=== PATIENT | female | born 1940 | race Caucasian/White ===

== ENCOUNTER 2017-06-10 09:22 | Day surgery (SDC) | payer MEDICARE, OTHER ==
[~2017-06-10] VITALS: Ht 167.6 cm; Wt 64.0 kg
[~2017-06-10 09:22] MED LIST: CYCL-36 PO; LORT5TAB PO; MELO15TA2 PO; NADO1TAB16 PO
[2017-06-10] MEDS ORDERED: IOHEXOL 350 MG/ML 50 ML BTL (for Cath Lab) OTHER ONE (09:23)
[2017-06-10] MEDS ORDERED: NS 1000P @30 MLS/HR (KVO) IV SCH (09:45)
[2017-06-10] MEDS ORDERED: CAL-TAB4 PO (10:06)
[2017-06-10] MEDS ORDERED: ATEN25TA PO (10:06)
[2017-06-10] MEDS ORDERED: FIBE625T10 PO (10:06)
[2017-06-10] MEDS ORDERED: ATOR10TA15 PO (10:06)
[2017-06-10] MEDS ORDERED: LACTCAP8 PO (10:06)
[2017-06-10] MEDS ORDERED: COLA100C5 PO (10:06)
[2017-06-10] MEDS ORDERED: ASPI81TA23 PO (10:06)
[2017-06-10] MEDS ORDERED: LOSA100T PO (10:06)
[2017-06-10] MEDS ORDERED: NORC5TAB PO (10:06)
[2017-06-10 10:09] VITALS: BP 151/84; PULSE 61; RESP 18; TEMP 97.9; O2SAT 98
[2017-06-10 10:13] LABS: BASOPHIL # 0.1 TH/MM3 (0-0.2); BASOPHIL % 0.8 % (0.0-2.0); EOSINOPHIL # 0.2 TH/MM3 (0-0.4); EOSINOPHIL % 3.5 % (0.0-4.0); HEMATOCRIT 43.5 % (35.0-46.0); HEMOGLOBIN 14.6 GM/DL (11.6-15.3); LYMPH % 20.4 % (9.0-44.0); LYMPHOCYTE # 1.2 TH/MM3 (1.0-4.8); MEAN CORPUSCULAR HEMOGLOBIN 30.5 PG (27.0-34.0); MEAN CORPUSCULAR HGB CONC 33.5 % (32.0-36.0); MEAN PLATELET VOLUME 8.8 FL (7.0-11.0); MONO % 8.8 % (0.0-8.0); MONOCYTE # 0.5 TH/MM3 (0-0.9); NEUT % 66.5 % (16.0-70.0); PLATELET COUNT 194 TH/MM3 (150-450); RED BLOOD COUNT 4.78 MIL/MM3 (4.00-5.30); RED CELL DISTRIBUTION WIDTH 14.3 % (11.6-17.2)
[2017-06-10 10:20] LABS: PROTHROMBIN TIME - PATIENT 10.5 SEC (9.8-11.6)
[2017-06-10 10:28] LABS: BICARBONATE 29.2 MEQ/L (21.0-32.0); CALCIUM 8.9 MG/DL (8.5-10.1); CREATININE 0.69 MG/DL (0.50-1.00)
[2017-06-10] MEDS ORDERED: HEPARIN-NS/PF FLUSH BAG 2,000 ML IV FLUSH ONE (11:05)
[2017-06-10] MEDS ORDERED: MIDAZOLAM HCL 2 MG/2 ML VIAL ONE (11:05)
[2017-06-10] MEDS ORDERED: VERAPAMIL HCL 5 MG/2 ML VIAL ONE (11:06)
[2017-06-10] MEDS ORDERED: HEPARIN SODIUM - IV 10,000 UNITS/10 ML VIAL ONE (11:06)
[2017-06-10] MEDS ORDERED: NITROGLYCERIN INJ 5 ML ONE (11:06)
--- NOTE | 2017-06-10 12:37 | CATHPROC ---
Inspirato HIS Report Study Information Study Number Admission Scheduled Start Study Start [id number] Jun 10 2017 9:22AM 06/10/2017 Jun 10 2017 10:52AM Study Type [place] Service Left and Right Heart Cath Cardiac Catheterization Admit Source Facility Department Other [facility] - [employer] Technician Physician and Clinical Staff Initial Erik Hay Abatement Worker Rose Mary Haywood,JESUS Abatement Worker Kevin Mcdonald,RN Other Ching Gasca,RT(R) Recorder Clari Vela RCIS TECH2 Recorder Jim LEE, Daxa MoncadaRT(R) Procedures Performed Procedure Location (Site) Vessel Name Coronary Angiograms LCA Left Coronary Coronary Angiograms RCA Right Coronary Equipment Time [employer] Art Teacher Description Size Mfg Part Number Used/Scraped CATHETER, FR5 SWAN MAYTE 10:55 Second Decimal JACKSON FR 5 [id number] *[id number] Used MONITOR TRANSDUCER, TRUWAVE [id number] 10:54 DONG JACKSON * Used W/STOCKCOCK *[id number] *[id number] 10:54 [employer] PACK, CCL CUSTOM * Used *[id number] 10:54 [employer] SUPPORT, ARTERIAL ADULT [id number] *[id number] Used [id number] 12:09 MEDTRONIC JL 3.5 DXTERITY CATHETER FR 5 Used *[id number] BAND, RADIAL COMPRESSION TR [id number] 12:16 [employer] MEDICAL 24CM Used SHORT 24 *[id number] BAND, RADIAL COMPRESSION TR [id number] 12:17 [employer] MEDICAL 24CM Used SHORT 24 *[id number] 10:54 3D Forms WIRE, EXCHANGE 260CM 3MMJ 260CM Used *[id number] PROBE COVER, STERILE [id number] 11:42 XAircraft * Used ULTRASOUND W/ GEL *[id number] 10:55 NAMIC MANIFOLD, 2 PORT * Used *[id number] 10:54 NAMIC MANIFOLD, 4 PORT * Used *[id number] 10:54 NYCOMED OMNIPAQUE, 350 MG, 150ML 150ML [id number] Used [id number] 10:54 EU[employer] MEDICAL BLANKET,WARM AIR CCL * Used *[id number] SHEATH, FR6 TRANSRADIAL [id number] 10:54 TER[employer] MEDICAL FR 6 Used SLENDER 10CM *[id number] SHEATH, FR6 TRANSRADIAL RM*[id number] 10:54 [facility] Used SLENDER 10CM *[id number] History: Current Medications Medication Dosage/Unit Route Frequency Last Date/Time Taken ASA Beta Kay VITAMIN D Statins (any) COZAAR History: Allergies Allergy Reaction disopyramide SEVERE HEADACHE clavulanic acid DIARRHEA ciprofloxacin amoxicillin DIARRHEA History: Risk Factors Family History of Hypertension Dyslipidemia Previous IN Previous Heart Failure Premature CAD Yes Yes No No No Prior Valve Prior PCI Prior CABG Surgery No No No Cerebrovascular Peripheral Artery Chronic Lung On Dialysis Diabetes Disease Disease Disease No No No No No History: Stress Tests Stress or Imaging Studies Performed No History: Other Current Smoker Method Quit Packs a Day Years Used Pack Years No Cigarettes 44 Years Ago 1 15 15 Labs Hgb (g/dl) Hct (%) WBC (l/cumm) Platelets (thousands) 11.60-17.00 35.00-51.00 4.00-11.00 150.00-450.00 14.6 43.5 6 194 Glucose (mg/dl) BUN (mg/dl) Creatinine (mg/dl) BUN:Creatinine (1:x) 74.00-106.00 7.00-18.00 0.50-1.30 10.00-20.00 85 12 0.6 20 Na (meq/l) K (meq/l) Cl (meq/l) CO2 (mmol/L) Ca (mg/dl) 136.00-145.00 3.50-5.10 98.00-107.00 21.00-32.00 8.50-10.10 142 3.7 106 29.2 8.9 PT (sec) PTT (sec) INR (PTT:PT) 9.80-11.60 24.30-30.10 0.90-1.10 10.5 24.9 1 CPK-MB (ng/ML) 0.50-3.60 Not Drawn Medication Medication Total Dose (Bolus/Oral) Medication Total Dosage/Unit 1% XYLOCAINE 40 mL FENTANYL 50 mcg RADIAL COCKTAIL 5 mL (Bolus) Medications (Bolus/Oral) Medication Time Given Dosage/Unit Administered By Reason FENTANYL 06/10/2017 11:38:07 AM 50 mcg Kevin Mcdonald 50 mcg FENTANYL given in lab by Kevin Mcdonald RN in Left Antecubital via Peripheral IV. Ordered by Erik Lopez 1% XYLOCAINE 06/10/2017 11:38:30 AM 20 mL Erik Ceron 20 mL 1% XYLOCAINE given in lab by Erik Ceron in Right Radial via Subcutaneous. Ordered by Erik Owens RADIAL COCKTAIL 06/10/2017 11:40:52 AM 5 mL (Bolus) Erik Ceron 5 mL (Bolus) RADIAL COCKTAIL given in lab by Erik Ceron in Right Radial via Radial. Using [S olution Name]. Ordered by Erik Ceron Reason: Ntg 200mcg Verapamil 2.5mg Heparin 2600U. 1% XYLOCAINE 06/10/2017 11:43:20 AM 20 mL Erik Ceron 20 mL 1% XYLOCAINE given in lab by Erik Ceron via Subcutaneous to right brachial. Ordered by Erik Ceron Medication (Drip) Medication Time Given Dosage/Unit Concentration/Unit Diluent (ml) Solution IV Solutions 06/10/2017 11:13:58 AM 0 mL (IV) 500 NaCl .9 Patient arrived on IV Solutions in Left Antecubital via Peripheral IV. Pump/Drip Flow = 20 ml/hr usin g NaCl .9. Final Case Assessment Cardiovascular HR Rhythm NIBP Chest Pain 67 sr 159/77 0 Circulatory - Right Pulses Dorsalis Pedis Femoral Radial 3 2 2 Scale (0,1,2,3,4,d) Circulatory - Left Pulses Dorsalis Pedis Femoral Radial 3 2 Scale (0,1,2,3,4,d) Chronological Log Time Study Chronological Log 11:02:59 Patient arrived via Bed. 11:03:00 Patient Name, D.O.B, / Armband Verified By R.N. 11:03:02 Consent signed by the physician and the patient and verified by the Oil Well Fishing Tool Technician staff. 11:03:02 Pre-op and post- op instructions given; patient acknowledges understanding of instruction s. 11:03:04 Verbal Stimulation=2 Physical Stimulation=2 Airway=2 Respiration=2 TOTAL=8. (0=absent, 1= limited, 2=present) 11:03:05 Presedation assessment performed by Oil [employer] Fishing Tool Technician RN. 11:03:07 Allens test performed on the left radial and ulnar artery. 11:03:08 Patient has been NPO for More than 6Hrs. 11:03:09 Skin Breakdown-none 11:03:11 Kennedy Prominences Protected 11:13:21 A # 20 IV was noted in the Antecubital (left). Grade = patent 11:13:58 Patient arrived on IV Solutions in Left Antecubital via Peripheral IV. Pump/Drip Flow = 20 ml/hr using NaCl .9. 11:14:17 History and physical on the chart or being dictated. Vitals capture started with the following parameters, Patient=Adult, Interval=5 min, Initial Pr ucdrer=598 mmHg, 11:14:28 Deflation Rate=5 mmHg, Cuff placed on Unknown 11:14:41 Reference ECG taken 11:15:33 HR=70 bpm, HPSQ=208/79 mmhg, SpO2=98.0 %, Resp=14 B/min, Pain=0, [place]=10, Matthews=2 11:18:10 Bilateral groins and right radial and brachial prepped with 2% chlorhexidine, and draped af ter a 3 minute waiting time. 11:20:51 HR=75 bpm, GYMT=454/88 mmhg, SpO2=97.0 %, Resp=20 B/min 11:25:15 HR=73 bpm, HQPS=320/79 mmhg, SpO2=98.0 %, Resp=17 B/min 11:27:35 MD paged 11:29:42 MD responded 11:30:14 HR=74 bpm, DXZE=434/83 mmhg, SpO2=97.0 %, Resp=9 B/min 11:31:53 MD arrived. 11:35:09 HR=74 bpm, KFTC=380/86 mmhg, SpO2=95.0 %, Resp=14 B/min Time Out. Correct patient, correct procedure, correct physician, power injector loaded, or not loaded with contrast with 11:37:29 surgical team present. Time Out Concurred by MD and individual staff in procedure. 11:37:43 Pressure channel 1 zeroed. 50 mcg FENTANYL given in lab by Kevin Mcdonald, RN in Left Antecubital via Peripheral IV. Ordered by Erik Ceron 11:38:07 G. 11:38:27 Case Start 20 mL 1% XYLOCAINE given in lab by Erik Ceron in Right Radial via Subcutaneous. Ordere d by Osmany 11:38:30 Erik Medina 11:39:39 Access site was Radial Artery. right A SHEATH, FR6 TRANSRADIAL SLENDER 10CM FR 6 was advanced into the Radial (right) using the Perc utaneous 11:39:57 technique. 11:40:12 HR=74 bpm, NLGP=182/85 mmhg, SpO2=98.0 %, Resp=14 B/min 5 mL (Bolus) RADIAL COCKTAIL given in lab by Erik Ceron in Right Radial via Radial. Us ing [Solution Name]. 11:40:52 Ordered by Erik Ceron. Reason: Ntg 200mcg Verapamil 2.5mg Heparin 2600U. 20 mL 1% XYLOCAINE given in lab by Erik Ceron via Subcutaneous to right brachial. Orde red by Osmany, 11:43:20 Erik Monte. 11:45:15 HR=72 bpm, SBLS=977/82 mmhg, SpO2=94.0 %, Resp=10 B/min, Pain=0, Matthews=2 11:50:10 HR=68 bpm, MJSX=232/80 mmhg, SpO2=96.0 %, Resp=20 B/min, Pain=0, Matthews=2 11:50:38 Access site was Right Brachial Vein. A SHEATH, FR6 TRANSRADIAL SLENDER 10CM FR 6 was advanced into the Radial (right) using the Earnest fievelyn Moore 11:51:20 technique. 11:52:40 A CATHETER, FR5 SWAN MAYTE MONITOR FR 5 was inserted via Brach. Vein (right) Recorded Pressure: PCW, HR=69, Condition=Condition 1 11:54:53 (Pulmonary Capillary Wedge) PCW 19/17/15 11:55:56 HR=67 bpm, BJLU=679/84 mmhg, SpO2=95.0 %, Resp=12 B/min, Pain=0, Matthews=2 11:57:45 Saturation: Site=PA (Pulmonary Artery) , O2=77.9 %, Hgb=14.6 gm/dl, Condition=Condition 1. Used in calculation. 11:59:01 Saturation: Site=Ao (Aorta) , O2=93.6 %, Hgb=14.6 gm/dl, Condition=Condition 1. Used in riddhi culation. Recorded Pressure: MPA, HR=67, Condition=Condition 1 11:59:51 (Main Pulmonary Artery) MPA 35/17/24 12:00:14 HR=67 bpm, RZRR=647/74 mmhg, SpO2=94.0 %, Resp=10 B/min, Pain=0, Matthews=2 Recorded Pressure: RV, HR=66, Condition=Condition 1 12:01:04 (Right Ventricle) RV 39/5/8 12:02:42 Saturation: Site=RV (Right Ventricle) , O2=80.4 %, Hgb=14.6 gm/dl, Condition=Condition 1. U sed in calculation. 12:03:18 Saturation: Site=RA (Right Atrium) , O2=80.9 %, Hgb=14.6 gm/dl, Condition=Condition 1. Used in calculation. Recorded Pressure: RA, HR=69, Condition=Condition 1 12:03:59 (Right Atrium) RA 8/6/4 12:04:22 Gary Mayte Catheter Removed 12:04:48 A JR 4.0 INFINITI CATHETER FR 5 was advanced over a wire. 12:05:17 HR=66 bpm, LMGV=954/83 mmhg, SpO2=92.0 %, Resp=10 B/min, Pain=0, Matthews=2 Recorded Pressure: Ao, HR=68, Condition=Condition 1 12:07:16 (Aorta) Ao 175/73/114 12:07:51 The RCA was injected and visualized at various angles. OMNIPAQUE, 350 MG, 150ML 150ML used . After removing the current catheter a JL 3.5 DXTERITY CATHETER FR 5 was advanced over a WIRE, E XCHANGE 260CM 12:08:12 3MMJ 260CM. 12:10:16 HR=67 bpm, MYPH=365/83 mmhg, SpO2=95.0 %, Resp=13 B/min, Pain=0, Matthews=2 12:11:10 The LCA was injected and visualized at various angles. OMNIPAQUE, 350 MG, 150ML 150ML used . 12:13:33 Catheter was removed 12:13:46 Case End 12:14:31 Activated Clotting Time Drawn 12:15:15 HR=71 bpm, RQBZ=598/77 mmhg, SpO2=93.0 %, Resp=27 B/min, Pain=0, Matthews=2 Radial Compression Device Used. 10 mLs of air placed in BAND, RADIAL COMPRESSION TR SHORT 24 24 CM. Affected 12:16:09 hand 94 % O2 saturation. 12:19:46 Case End 12:20:14 HR=67 bpm, MTWV=210/71 mmhg, SpO2=97.0 %, Resp=11 B/min 12:20:34 ACT (Normal Range 90-180) = 198 12:25:13 HR=67 bpm, KELY=059/77 mmhg, SpO2=96 %, Resp=12 B/min 12:26:18 Vitals capture stopped. 12:27:49 Sheath(s) left in place, will be removed in Holding Area 12:27:52 Sterile dressing applied to site 12:27:53 No case complications noted. 12:27:54 Cine recording checked. 12:27:55 Bedside Report will be given. Assessment: Final Case, HR=67 BPM, Rhythm=sr, XCID=595/77 mmhg, Chest Pain=0 12:28:00 Right Pulses: Chris Ped=3, Femoral=2, Radial=2 Left Pulses: Chris Ped=3, Femoral=2 12:30:50 Patient moved to stretcher 12:33:19 Patient transported to DOCU. End Study - Contrast Media Used In Study Contrast Total Opened (mL) Total Used (mL) Total Wasted (mL) Omnipaque 40 40 0 End Study - Maximum Contrast Load Max Contrast Load (mL) 533.3 End Study - Radiation Exposure Fluoro Time (minutes) 2.5 End Study - Sheaths Sheaths Pulled By Sheath Hold Time (min) Erik Ceron End Study - Patient Disposition Complications Transferred To Interventional Outcome No Telemetry Bed No attempt made
[2017-06-10] MEDS ORDERED: MISC INFORMATION XX ONE (12:45)
--- NOTE | 2017-06-10 13:03 | MA ---
cc: Erik Ceron DO DATE: 06/10/2017 PROCEDURE PERFORMED: Coronary angiogram, right heart catheterization. PREPROCEDURE DIAGNOSIS: Severe aortic stenosis by echocardiogram, for possible aortic valve replacement/transcatheter aortic valve replacement. POSTPROCEDURE DIAGNOSIS: Mild coronary artery disease, severe aortic stenosis. MEDICATIONS: Fentanyl 50 mcg, nitroglycerin 200 mcg, verapamil 2.5 mg, heparin 2600 units. CONTRAST USED: 40 mL FLUOROSCOPY: 2.5 minutes. MODERATE SEDATION: Zero minutes. ESTIMATED BLOOD LOSS: 10 mL PROCEDURAL SUMMARY: Vale Lilly is a pleasant 77-year-old female who sees my partner, Dr. Pak, in the office and was found to have and was found to have severe aortic stenosis by echo. She was recommended cardiac catheterization before evaluation by CT surgery. Risks, benefits and alternatives were discussed with her, and she consented to such. She was brought to the lab and prepped in the usual sterile fashion. Right radial artery was accessed using modified Seldinger technique and placement of a 5/6 Hungarian slender sheath. This was easily aspirated and flushed. Right brachial vein was accessed using a modified Seldinger technique and ultrasound guidance with placement of a 5/6 Hungarian slender sheath. This was easily aspirated and flushed. A Clearwater-Walter catheter was advanced to a wedge position and oxygen saturations as well as pressures were recorded on pullback. Clearwater-Walter catheter was removed. JR4 was advanced to the aortic root and was used for selective angiography of the right coronary artery. This was exchanged for a JL3.5, which was used for selective angiography of the left coronary artery system. JL3.5 was removed over a J-wire. A radial band was placed over the arteriotomy site for hemostasis. Brachial vein sheath will be removed once the ACTs are appropriate. The patient left the custodial laborer cardiovascularly stable. IMPRESSION: 1. Severe aortic stenosis by echocardiogram. 2. Mild coronary artery disease by cardiac catheterization. RECOMMENDATIONS: 1. Vale Lilly is a pleasant 77-year-old who has severe aortic stenosis by echocardiogram and minimal coronary artery disease. 2. She will be seen by CT surgery for consideration of mini AVR versus TAVR. 3. Further recommendations will be made after CT surgery evaluation. Thank you for allowing me to see Vale Lilly. If there are any questions, please do not hesitate to call. DO AMARJIT Tijerina/IVIS , 12:41 PM , 01:02 PM
[2017-06-10] MEDS ORDERED: ONDANSETRON HCL 4 MG/2 ML VIAL ONE (13:27)
--- NOTE | 2017-06-10 14:32 | PD.CAR.PN ---
CVT Progress Note Subjective/Hospital Course: pt seen and evaluated / full consult to follow scheduled for elective Mini AVR 06/30/17 sts discussed with pt . RISK SCORES About the STS Risk Calculator Procedure: AV Replacement Risk of Mortality: 2.32% Morbidity or Mortality: 13.875% Long Length of Stay: 5.866% Short Length of Stay: 34.516% Permanent Stroke: 1.659% Prolonged Ventilation: 8.86% DSW Infection: 0.238% Renal Failure: 2.677% Reoperation: 6.905% Objective: Vital Signs Date Time Temp Pulse Resp B/P (MAP) Pulse Ox O2 Delivery O2 Flow Rate FiO2 06/10/17 12:37 98 Room Air 06/10/17 10:09 97.9 61 18 151/84 (106) 98 Labs: Laboratory Tests Test 06/10/17 09:30 White Blood Count 6.0 TH/MM3 (4.0-11.0) Red Blood Count 4.78 MIL/MM3 (4.00-5.30) Hemoglobin 14.6 GM/DL (11.6-15.3) Hematocrit 43.5 % (35.0-46.0) Mean Corpuscular Volume 91.0 FL (80.0-100.0) Mean Corpuscular Hemoglobin 30.5 PG (27.0-34.0) Mean Corpuscular Hemoglobin Concent 33.5 % (32.0-36.0) Red Cell Distribution Width 14.3 % (11.6-17.2) Platelet Count 194 TH/MM3 (150-450) Mean Platelet Volume 8.8 FL (7.0-11.0) Neutrophils (%) (Auto) 66.5 % (16.0-70.0) Lymphocytes (%) (Auto) 20.4 % (9.0-44.0) Monocytes (%) (Auto) 8.8 % (0.0-8.0) Eosinophils (%) (Auto) 3.5 % (0.0-4.0) Basophils (%) (Auto) 0.8 % (0.0-2.0) Neutrophils # (Auto) 4.0 TH/MM3 (1.8-7.7) Lymphocytes # (Auto) 1.2 TH/MM3 (1.0-4.8) Monocytes # (Auto) 0.5 TH/MM3 (0-0.9) Eosinophils # (Auto) 0.2 TH/MM3 (0-0.4) Basophils # (Auto) 0.1 TH/MM3 (0-0.2) CBC Comment DIFF FINAL Differential Comment Prothrombin Time 10.5 SEC (9.8-11.6) Prothromb Time International Ratio 1.0 RATIO Activated Partial Thromboplast Time 24.9 SEC (24.3-30.1) Blood Urea Nitrogen 12 MG/DL (7-18) Creatinine 0.69 MG/DL (0.50-1.00) Random Glucose 85 MG/DL (74-106) Calcium Level 8.9 MG/DL (8.5-10.1) Sodium Level 142 MEQ/L (136-145) Potassium Level 3.7 MEQ/L (3.5-5.1) Chloride Level 106 MEQ/L (98-107) Carbon Dioxide Level 29.2 MEQ/L (21.0-32.0) Anion Gap 7 MEQ/L (5-15) Estimat Glomerular Filtration Rate 82 ML/MIN (>89) Result Diagram: 06/10/1792906/10/17929 Estefani Ding Jun 10, 2017 14:32
--- NOTE | 2017-06-10 14:32 | RADRPT ---
EXAM DATE/TIME: 06/10/2017 15:05 [facility] COMPARISON: No previous studies available for comparison. INDICATIONS : Pre-op AVR. MEDICAL HISTORY : Myocardial infarction. Hypertension. Coronary artery disease. Skin cancer. SURGICAL HISTORY : Tubal ligation. Hysterectomy. Appendectomy. Vein stripping, left leg. Left breast lumpectomy. Thyroid surgery. ENCOUNTER: Initial ACUITY: 1 day PAIN SCORE: 0/10 LOCATION: Bilateral neck PEAK SYSTOLIC VELOCITIES (cm/sec): ICA/CCA RATIO: Right: 1.1 Left: 1.2 ICA: Right: 112 Left: 87 CCA: Right: 99 Left: 73 ECA: Right: 46 Left: 69 VERTEBRAL: Right: 44 antegrade Left: 63 antegrade Elevated flow velocities and ICA/CCA ratios have been found to correlate with increased degrees of vessel stenosis, calculated as percentage of diameter relative to a normal segment of distal ICA/CCA FINDINGS: RIGHT CAROTID: No significant stenosis is visualized. The waveforms are within normal limits. LEFT CAROTID: No significant stenosis is visualized. The waveforms are within normal limits. VERTEBRAL ARTERIES: Antegrade flow is seen in both vertebral arteries. MISCELLANEOUS: None. CONCLUSION: No evidence of flow-limiting carotid stenosis. David Cooper MD on June 10, 2017 at 14:30 Board Certified Radiologist. This report was verified electronically.
--- NOTE | 2017-06-10 15:02 | MB ---
cc: Estefani Ding DATE: 06/10/2017 PRIMARY CARE PHYSICIAN: Jean Claude Marsh MD LAMP STACK DEVELOPER: Dr. Pak. PROCEDURE: Catheterization was done by Dr. Ceron. HISTORY OF PRESENT ILLNESS: This very pleasant 77-year-old female with a history of aortic stenosis has been followed since in her 40s, having some increasing fatigue and apparently had worsening severe by echocardiogram. The aortic valve had an area of 0.47 cm2, mean gradient of 56, peak gradient of 101. She had some mild MR and no tricuspid regurgitation. Ejection fraction by echo 65%. She underwent cardiac catheterization today by Dr. Ceron with nonobstructing coronary disease, RA pressures are 4, PA pressures are 35/7, cardiac output of 6.9 with an index of 4.0. We were consulted to evaluate for aortic valve replacement. PAST MEDICAL HISTORY: Significant for aortic stenosis, carotid artery disease which was apparently mild in 08/2016, chronic pain syndrome, hyperlipidemia, hypertension, osteoarthritis, peptic ulcer disease, and scoliosis. She has had varicose veins of the lower extremities. PAST SURGICAL HISTORY: Include appendectomy. She had a breast biopsy, which was negative. Cataract surgery, hysterectomy, lumbosacral spine surgery, subtotal thyroidectomy, varicose vein stripping. ALLERGIES: AUGMENTIN WHICH CAUSES DIARRHEA. SHE IS OKAY TO TAKE PENICILLIN, HOWEVER. SHE IS ALLERGIC TO ____, WHICH CAUSES DIARRHEA. NORPACE CAUSE HEADACHES. FAMILY HISTORY: Mother at age 24. She is estranged from her father. SOCIAL HISTORY: She is a , 4 [place]. She smoked for about 15 years, quit in 1973. No alcohol. REVIEW OF SYSTEMS: GENERAL: No night sweats, fever, heat or cold intolerance. SKIN: No psoriasis, itching or hives. HEENT: No blurred vision or hearing loss. RESPIRATORY: No cough or shortness of breath. CARDIOVASCULAR: Just some fatigue. No syncope. No chest pain. No edema. No paroxysmal nocturnal dyspnea. GASTROINTESTINAL: No diarrhea or vomiting. She gets occasional constipation from taking her chronic pain medication. GENITOURINARY: No burning, frequency, or urgency. CENTRAL NERVOUS SYSTEM: No history of TIA, CVA or seizure disorder. ENDOCRINOLOGY: No diabetes or hypothyroidism. PHYSICAL EXAMINATION: VITAL SIGNS: Blood pressure 150/80, heart rate is 60, temperature T-max 97.9, room air sat 98%. GENERAL: Awake, alert, in no acute distress. HEENT: Head is normocephalic, atraumatic. Pupils are equal and reactive. Oral mucosa pink, moist. NECK: Supple. No JVD. HEART: Sounds S1, S2, with regular rate and rhythm. She has got a grade III/ systolic murmur best heard at the right sternal border. LUNGS: Clear to auscultation. No wheezes, rales or rhonchi. ABDOMEN: Soft, nontender. No masses or organomegaly. EXTREMITIES: No cyanosis, clubbing, or edema. ASSESSMENT AND PLAN: This is a 77-year-old female with severe aortic stenosis and a valve area 0.47. Procedures, alternatives and risks have been discussed with the patient and the films have been evaluated by Dr. Pilar Cedeno. Plan will be for surgery on 06/30/2017. DUKE Boyle MD JRT/BRYSON , 02:36 PM , 03:01 PM
--- NOTE | 2017-06-10 16:46 | EKG ---
Date Performed: 06/10/2017 Time Performed: 10:06:08 PTAGE: 77 years EKG: Sinus bradycardia. Left axis deviation Inferior infarct - age undetermined Poor R wave prog ression - cannot rule out anteroseptal infarct Left ventricular hypertrophy Lateral ST-T changes are probably due to ventricular hypertrophy Abnormal ECG NO PREVIOUS TRACING DOCTOR: Lauren Paez Interpretating Date/Time 06/10/2017 16:43:35
--- NOTE | 2017-06-10 16:55 | RADRPT ---
EXAM DATE/TIME: 06/10/2017 16:41 [facility] COMPARISON: No previous studies available for comparison. INDICATIONS : Pre op AVR RADIATION DOSE: 5.81 CTDIvol (mGy) MEDICAL HISTORY : Cardiovascular disease. Hypertension. SURGICAL HISTORY : Hysterectomy. Appendectomy.Tubal ligation. ENCOUNTER: Initial ACUITY: 1 day PAIN SCALE: 0/10 LOCATION: chest TECHNIQUE: Volumetric scanning of the chest was performed. Using automated exposure control and adjustment of t he mA and/or kV according to patient size, radiation dose was kept as low as reasonably achievable to obtain optimal diagnostic quality images. DICOM format image data is available electronically for r eview and comparison. Follow-up recommendations for detected pulmonary nodules are based at a minimum on nodule size and pa tient risk factors according to Fleischner Society Guidelines. FINDINGS: LUNGS: There is no consolidation or pneumothorax. Focal mild atelectasis versus scarring in the right middle lobe. No acute pulmonary infiltrates. Single 6 mm pulmonary nodule left upper lung. PLEURAE: There is no pleural thickening or pleural effusion. MEDIASTINUM: The heart and great vessels demonstrate no acute abnormality. There is no mediastinal or hilar lymph adenopathy. Atherosclerotic changes. Coronary calcifications. Calcifications at the aortic root. AXILLAE: Within normal limits. No lymphadenopathy. MUSCULOSKELETAL: Within normal limits for patient age. Primary degenerative changes. Scoliosis with curvature of the t horacic spine to the left. MISCELLANEOUS: Several low-density lesions in the liver suggestive of hepatic cysts. These measure about 1.4 cm in s ize. CONCLUSION: 1. Single 6 mm pulmonary nodule left upper lung. This is nonspecific. Recommend followup noncontrast CT thorax in 6 months to check stability. 2. Mild linear atelectasis versus scarring right middle lobe. 3. No acute intrathoracic disease. 4. Probable hepatic cysts. 5. Degenerative changes and scoliosis with curvature of the thoracic spine to the left. Kishor Hodges MD on June 10, 2017 at 16:48 Board Certified Radiologist. This report was verified electronically.
--- NOTE | 2017-06-10 16:57 | RADRPT ---
EXAM DATE/TIME: 06/10/2017 16:38 [facility] COMPARISON: No previous studies available for comparison. INDICATIONS : Evaluate for pneumonia, pnuemothorax, or other communicable disease. Pre-op ACR. MEDICAL HISTORY : Myocardial infarction. Hypertension Coronary artery disease. Skin cancer SURGICAL HISTORY : Hysterectomy. Appendectomy. Vein stripping, left leg. Left breast lumpectomy. Thyroid surgery ENCOUNTER: Initial ACUITY: 1 day PAIN SCORE: 0/10 LOCATION: Bilateral chest FINDINGS: PA and lateral views of the chest demonstrate the lungs to be symmetrically aerated without evidence of mass, infiltrate or effusion. There is some hyperaeration bilaterally. The cardiomediastinal conto urs are unremarkable. Osseous structures are intact. CONCLUSION: No acute disease. Kishor Hodges MD on June 10, 2017 at 16:55 Board Certified Radiologist. This report was verified electronically.
[2017-06-10 17:14] LABS: ALBUMIN 3.7 GM/DL (3.4-5.0); ALT (GPT) 17 U/L (10-53); DIRECT BILIRUBIN ADULT 0.1 MG/DL (0.0-0.2)
[2017-06-10 17:27] LABS: ALKALINE PHOSPHATASE 59 U/L (45-117); AST (GOT) 17 U/L (15-37); INDIRECT BILIRUBIN 0.4 MG/DL (0.0-0.8); TOTAL BILIRUBIN ADULT 0.5 MG/DL (0.2-1.0)
[2017-06-10 19:14] LABS: BACTERIA, URINE RARE /hpf; BILIRUBIN, URINE NEG (NEG); BLOOD, URINE NEG (NEG); GLUCOSE,URINE NEG (NEG); KETONE, URINE TRACE mg/dL (NEG); MUCUS URINE FEW /lpf (OCC); NITRITE,URINE NEG (NEG); PH, URINE 6.5 (5.0-8.5); SQUAMOUS EPITHELIAL CELL URINE <1 /hpf (0-5); URINE COLOR YELLOW (YELLW/STRAW); URINE LEUKOCYTE ESTERASE TRACE (NEG)
[2017-06-11 15:14] LABS: HEMOGLOBIN A1C 5.3 % (4.3-6.0)
--- NOTE | 2017-06-12 08:25 | RSPPFT ---
DATE OF PROCEDURE: 06/10/17 COMMENTS: Spirometry with FVC of 1.9 predicted 2.7, FEV1 of 1.1 predicted 1.9, FEV1/FVC ratio 69% predicted 80%. IMPRESSION: On the basis of the above, patient has an obstructive lung defect. Lung volumes and post-bronchodilator values have not been measured.
== END 2017-06-10 17:50 | disposition home or self-care (01) ==
LOC: HDOC 09:22 → HDIC 09:23 → HDOC 17:50
PROVIDERS: ATTEND Nuclear Medicine Nuclear Cardiology
DX: I35.0 Nonrheumatic aortic (valve) stenosis (principal); I25.10 Atherosclerotic heart disease of native coronary artery without angina pectoris; I10 Essential (primary) hypertension; E78.5 Hyperlipidemia, unspecified; I25.2 Old myocardial infarction; M41.9 Scoliosis, unspecified; R91.1 Solitary pulmonary nodule; R94.31 Abnormal electrocardiogram [ECG] [EKG]; Z01.818 Encounter for other preprocedural examination; Z79.82 Long term (current) use of aspirin
CPT/HCPCS: 71046; 71250; 80048; 80076; 81001; 83036; 85025; 85610; 85730; 86850; 86900; 86901; 87641; 93005; 93456; 93880; 94010; C1769; C1893; J1644; J2250; J2405; J3010; Q9967

== ENCOUNTER → 2017-06-22 | Outpatient (CLI) | payer MEDICARE, OTHER ==
[~2017-06-22] MED LIST changes: +ASPI81TA23 PO; +ATEN25TA PO; +ATOR10TA15 PO; +CAL-TAB4 PO; +COLA100C5 PO; -CYCL-36 PO; +FIBE625T10 PO; +LACTCAP8 PO; -LORT5TAB PO; +LOSA100T PO; -MELO15TA2 PO; +MIRA3350 PO; -NADO1TAB16 PO; +NORC5TAB PO
[2017-06-22 10:59] LABS: AUTOMATED NEUTROPHIL # 3.9 TH/MM3 (1.8-7.7); BASOPHIL # 0.1 TH/MM3 (0-0.2); BASOPHIL % 1.1 % (0.0-2.0); EOSINOPHIL # 0.2 TH/MM3 (0-0.4); EOSINOPHIL % 2.9 % (0.0-4.0); HEMATOCRIT 43.5 % (35.0-46.0); HEMOGLOBIN 14.5 GM/DL (11.6-15.3); LYMPH % 21.9 % (9.0-44.0); LYMPHOCYTE # 1.3 TH/MM3 (1.0-4.8); MEAN CELL VOLUME 92.5 FL (80.0-100.0); MEAN CORPUSCULAR HEMOGLOBIN 30.8 PG (27.0-34.0); MEAN CORPUSCULAR HGB CONC 33.2 % (32.0-36.0); MEAN PLATELET VOLUME 9.4 FL (7.0-11.0); MONO % 8.1 % (0.0-8.0); MONOCYTE # 0.5 TH/MM3 (0-0.9); PLATELET COUNT 204 TH/MM3 (150-450); RED CELL DISTRIBUTION WIDTH 14.6 % (11.6-17.2); WHITE BLOOD COUNT 5.9 TH/MM3 (4.0-11.0)
[2017-06-22 11:06] LABS: INTERNATIONAL NORMALIZED RATIO 1.1 RATIO; PROTHROMBIN TIME - PATIENT 10.7 SEC (9.8-11.6)
[2017-06-22 11:11] LABS: BILIRUBIN, URINE NEG (NEG); BLOOD, URINE TRACE (NEG); GLUCOSE,URINE NEG (NEG); KETONE, URINE NEG (NEG); MUCUS URINE FEW /lpf (OCC); NITRITE,URINE NEG (NEG); URINE COLOR LIGHT-YELLOW (YELLW/STRAW); URINE LEUKOCYTE ESTERASE NEG (NEG)
[2017-06-22 11:28] LABS: ALBUMIN 3.5 GM/DL (3.4-5.0); AST (GOT) 13 U/L (15-37); BICARBONATE 31.8 MEQ/L (21.0-32.0); BLOOD UREA NITROGEN 13 MG/DL (7-18); CALCIUM 8.8 MG/DL (8.5-10.1); CHLORIDE 107 MEQ/L (98-107); CREATININE 0.56 MG/DL (0.50-1.00); GLOMERULAR FILTRATION RATE 104 ML/MIN (>89); GLUCOSE,FASTING 91 MG/DL (74-99); SODIUM (NA) 143 MEQ/L (136-145)
[2017-06-22 11:31] LABS: ALKALINE PHOSPHATASE 58 U/L (45-117); ALT (GPT) 20 U/L (10-53); TOTAL BILIRUBIN ADULT 0.6 MG/DL (0.2-1.0)
[2017-06-22 16:12] LABS: HEMOGLOBIN A1C 5.3 % (4.3-6.0)
== END ==
LOC: CPRE 10:07
PROVIDERS: ATTEND Thoracic Surgery (Cardiothoracic Vascular Surgery)
DX: Z01.812 Encounter for preprocedural laboratory examination (principal); Z01.818 Encounter for other preprocedural examination; I35.0 Nonrheumatic aortic (valve) stenosis
CPT/HCPCS: 36415; 80053; 81001; 83036; 85025; 85610; 85730; 86850; 86900; 86901; 87640; 87641

== ENCOUNTER 2017-06-30 05:24 | Inpatient (IN) | payer MEDICARE, OTHER ==
[~2017-06-30] VITALS: Ht 167.6 cm; Wt 70.1 kg
[2017-06-30] VITALS (8 sets, daily range): BP systolic 97–147; BP diastolic 49–74; PULSE 61–80; RESP 10–20; TEMP 97.2–99.2; O2SAT 92–99
[~2017-06-30 05:24] MED LIST changes: -CAL-TAB4 PO; -FIBE625T10 PO
[2017-06-30] MEDS ORDERED: VANCOMYCIN 1000 MG in NS IRR BTL 1000 ML IRRIGATION SCH (06:00)
[2017-06-30] MEDS ORDERED: LACTATED RINGER'S 1000 ML IV PRN (06:00)
[2017-06-30] MEDS ORDERED: INSULIN REGULAR 100 UNITS in NS 100 ML IV PRN (06:00)
[2017-06-30] MEDS ORDERED: SODIUM CHLORIDE 0.9% FLUSH 10 ML FLUSH IV FLUSH PRN ×3 (06:00→11:45)
[2017-06-30] MEDS ORDERED: DEXTROSE 50% IN WATER 50 ML VIAL(D50) IV PUSH PRN ×2 (06:00→11:45)
[2017-06-30] MEDS ORDERED: POVIDONE IODINE 5% (ANTISEPSIS KIT) 4 APPLICATIONS EACH NARE PRN (06:00)
[2017-06-30] MEDS ORDERED: CHLORHEXIDINE GLUCONATE 4% SOLN 120 ML BTL TOPICAL SCH (06:00)
[2017-06-30] MEDS ORDERED: VANCOMYCIN 1 GM/200 ML PREMIX ON-CALL IV SCH (06:00)
[2017-06-30] MEDS ORDERED: SODIUM CHLORID 0.9% 500 ML IV PRN (06:00)
[2017-06-30] MEDS ORDERED: METOPROLOL TARTRATE 25 MG TAB PO SCH (06:00)
[2017-06-30] MEDS ORDERED: CHLORHEXIDINE GLUCONATE 2 % 1 PACK (2 CLOTHS) TOPICAL PRN (06:00)
[2017-06-30] MEDS ORDERED: methylPREDNISolone SOD SUCC 125 MG/2 ML VIAL ONE (06:29)
[2017-06-30] MEDS ORDERED: HEPARIN SODIUM - SQ 10,000 UNITS/ML VIAL ONE (06:29)
[2017-06-30] MEDS ORDERED: VANCOMYCIN HCL 1000 MG VIAL ONE (06:29)
[2017-06-30] MEDS ORDERED: ACETAMINOPHEN 1000 MG/100 ML 100 ML IV ONE (06:51)
[2017-06-30] MEDS ORDERED: MIDAZOLAM HCL 5 MG/5 ML VIAL ONE (06:51)
[2017-06-30] MEDS ORDERED: fentaNYL CITRATE 250 MCG/5 ML AMP ONE ×3 (06:51→09:07)
[2017-06-30] MEDS ORDERED: SUGAMMADEX SODIUM 200 MG/2 ML VIAL IV PUSH ONE (06:51)
[2017-06-30] MEDS ORDERED: BUPIVACAINE LIPOSO PF 1.3% INJ 20 ML, DEXAMETHASONE INJ 4 MG, MORPHINE INJ 8 MG in SODI... IRRIGATION SCH (07:15)
[2017-06-30] MEDS ORDERED: CUSTODIOL HTK IRR SOLN 2,000 ML ONE (07:17)
[2017-06-30] MEDS ORDERED: MANNITOL INJ 100 ML ONE (07:22)
[2017-06-30] MEDS ORDERED: ALBUMIN 25% INJ 50 ML IV ONE (07:24)
[2017-06-30] MEDS ORDERED: HEPARIN SODIUM - IV 10,000 UNITS/10 ML VIAL ONE (07:24)
[2017-06-30] MEDS ORDERED: SODIUM BICARBONATE 8.4% INJ 50 MEQ/50 ML SYR ONE (07:25)
[2017-06-30] MEDS ORDERED: POTASSIUM CHLORIDE 20 MEQ/10 ML VIAL ONE (07:34)
[2017-06-30] MEDS ORDERED: CLEVIDIPINE INJ 50 ML ONE (11:38)
[2017-06-30] MEDS ORDERED: LACTATED RINGER'S 1000 ML INJ 500 ML IV PRN (11:40)
[2017-06-30] MEDS ORDERED: INSULIN REGULAR (IV INFUSION) 100 UNITS in SODIUM CHLORIDE 0.9% INJ 99 ML IV PRN (11:45)
[2017-06-30] MEDS ORDERED: RESP: RACEPINEPHRINE 2.25% 0.5 ML NEB NEB PRN (11:45)
[2017-06-30] MEDS ORDERED: MAGNESIUM SULFATE INJ 2 GM in SODIUM CHLORIDE 0.9% INJ 100 ML IV PRN ×4 (11:45)
[2017-06-30] MEDS ORDERED: DEXMEDETOMIDINE INJ 200 MCG in SODIUM CHLORIDE 0.9% INJ 50 ML IV PRN (11:45)
[2017-06-30] MEDS ORDERED: ACETAMINOPHEN 650 MG SUPP RECTAL PRN (11:45)
[2017-06-30] MEDS ORDERED: POTASSIUM CHLORIDE 20 MEQ CONTROLLED RELEASE TAB PO PRN ×2 (11:45)
[2017-06-30] MEDS ORDERED: CALCIUM CHLORIDE 10% 1 GRAM/10 ML VIAL IV PUSH PRN (11:45)
[2017-06-30] MEDS ORDERED: ACETAMINOPHEN 325 MG TAB PO PRN (11:45)
[2017-06-30] MEDS ORDERED: oxyCODONE/ACETAMINOPHEN 5 MG/325 MG TAB PO PRN (11:45)
[2017-06-30] MEDS ORDERED: Post-op Orders (for Pharmacy) OTHER ONE (11:45)
[2017-06-30] MEDS ORDERED: METOPROLOL TARTRATE 5 MG/5 ML VIAL IV PUSH PRN (11:45)
[2017-06-30] MEDS ORDERED: SODIUM BICARBONATE 8.4% SOLN 50 MEQ/50 ML VIAL IV PUSH PRN ×2 (11:45)
[2017-06-30] MEDS ORDERED: POTASSIUM CHLOR 20 MEQ PREMIX 100 ML IV PRN ×2 (11:45)
[2017-06-30] MEDS ORDERED: RESP: ALBUTEROL 2.5 MG/IPRATROPIUM 0.5 MG NEB (PRN) NEB (11:45)
[2017-06-30] MEDS ORDERED: ALBUMIN 5% INJ 250 ML IV PRN (11:45)
--- NOTE | 2017-06-30 11:56 | PD.OP ---
cc: Pilar Cedeno MD; OsmanyErik Monte DO Operative Report Date of Surgery: Jun 30, 2017 Preoperative Diagnosis: (1) Aortic stenosis due to bicuspid aortic valve (2) Diastolic CHF Postoperative Diagnosis: same Procedure: AVR with a 19 Ballard pericardial valve KERWIN Anesthesia: Dr. Rowe Surgeon: Pilar Cedeno Art Educator(s): Kaye Wolf, RENETTA Operation and Findings: The risks, benefits, complications, treatment options, and expected outcomes were discussed with the patient. The possibilities of reaction to medication, pulmonary aspiration, perforation of viscus, bleeding, recurrent infection, the need for additional procedures, failure to diagnose a condition, and creating a complication requiring transfusion or operation were discussed with the patient. The patient concurred with the proposed plan, giving informed consent. The site of surgery properly noted/marked. The patient was taken to Operating Room, identified as Vale Lilly and the procedure verified as Aortic Valve Replacement, KERWIN. A Time Out was held and the above information confirmed. Standard monitoring lines and Karimi catheter were placed. General anesthesia was induced. The patient was prepped and draped in a sterile fashion. A median sternotomy was performed and electrocautery was used to obtain hemostasis. The pericardium was opened and a pericardial sling was created using interrupted 0 silk sutures. The patient was heparinized cardiopulmonary bypass. The heart was instrumented for cardiopulmonary bypass in the usual manner. Antegrade Custodiol cardioplegia was employed. The patient was placed on cardiopulmonary bypass. an aortic cross-clamp was applied and the heart was arrested using cold blood cardioplegia. The aorta was opened above the sinotubular ridge and the aortic valve was exposed. On opening the aorta, the valve was found to be bicuspid with fusion of the left and right cusps. The valve was resected as well as all annular calcification, sized for a 19 mm valve which was placed with 2-0 pledgeted Tycron valve sutures. The valve seated well. The aorta was closed with running 4 -0 Prolene suture. The patient systemically Re warmed. The heart was vigorously deaired with a clamp on. The clamp was removed, deairing continued. The patient was easily weaned from cardiopulmonary bypass. Protamine was given. There was no adverse reaction. Decannulation was carried out without incident. Intraoperative KERWIN following the procedure showed a well-seated aortic valve with no perivalvular leak and preserved ventricular function. Wound was checked for hemostasis was obtained using electrocautery. The sternum was closed with stainless steel wire. The fascia was closed with 1. PDS. The subcutaneous tissue was closed using a running 2-0 Vicryl suture. The skin was closed with 4- 0 Monocryl. Sterile dressings were placed. At the end of the operation, all sponge, instruments, and needle counts were correct. The patient was transferred to the CVICU in stable condition. Findings: Heavily calcified bicuspid aortic valve. The annulus measured ~15mm by KERWIN, so a small incision approach was not attempted in the event the patient would need a root enlargement. XC: 89 CPB: 109 Drains: mediastinal x 1 Specimens: aortic valve fragments Implants: 19 Ballard pericardial valve Complications: none Disposition: to CVICU in stable condition Pilar Cedeno MD Jun 30, 2017 11:56
[2017-06-30] MEDS ORDERED: PROTAMINE SULFATE 50 MG/5 ML VIAL IV ONE (12:00)
[2017-06-30] MEDS ORDERED: LIDOCAINE HCL 1% PF 5 ML AMPULE OTHER ONE (12:00)
[2017-06-30] MEDS ORDERED: NITROGLYCERIN 50 MG/DEXTROSE 5% SOLN 250 ML BTL IV ONE (12:00)
[2017-06-30] MEDS ORDERED: SODIUM CHLOR 0.9% 250 ML INJ 500 ML IV ONE (12:00)
[2017-06-30] MEDS ORDERED: NORMOSOL R INJ 2,000 ML IV ONE (12:00)
[2017-06-30] MEDS ORDERED: SODIUM BICARBONATE 8.4% INJ 50 MEQ/50 ML SYR IV ONE (12:00)
[2017-06-30] MEDS ORDERED: AMINOCAPROIC ACID INJ 250 MG/ML 20 ML VIAL IV ONE (12:00)
[2017-06-30] MEDS ORDERED: EPINEPHrine HCL (1:1000) 1 MG/ML VIAL IV ONE (12:00)
[2017-06-30] MEDS ORDERED: LACTATED RINGER'S 1000 ML INJ 2,000 ML IV ONE (12:00)
[2017-06-30] MEDS ORDERED: SODIUM CHLOR 0.9% 1000 ML INJ 1,000 ML IV ONE (12:00)
[2017-06-30] MEDS ORDERED: ePHEDrine/NS 25 MG/5 ML SYRINGE IV ONE (12:00)
[2017-06-30] MEDS ORDERED: HEPARIN SODIUM - SQ 10,000 UNITS/ML VIAL OTHER ONE (12:00)
[2017-06-30] MEDS ORDERED: VECURONIUM BROMIDE 10 MG VIAL IV ONE (12:00)
[2017-06-30] MEDS ORDERED: GLYCOPYRROLATE 0.2 MG/ML VIAL IV ONE (12:00)
[2017-06-30] MEDS ORDERED: PHENYLEPH/NS 1000 MCG/10 ML SYR IV ONE (12:00)
[2017-06-30] MEDS ORDERED: DEXMEDETOMIDINE HCL 200 MCG/2 ML VIAL IV ONE (12:00)
[2017-06-30] MEDS ORDERED: NS 100 ML (PAB BAG) 100 ML IV ONE (12:00)
[2017-06-30] MEDS ORDERED: AMIODARONE HCL 150 MG/3 ML VIAL IV ONE (12:00)
[2017-06-30] MEDS ORDERED: MAGNESIUM SULFATE 1 GM/2 ML VIAL IV ONE (12:00)
[2017-06-30] MEDS ORDERED: SODIUM CHLORID 0.9% 500 ML INJ 500 ML IV ONE (12:00)
[2017-06-30] MEDS ORDERED: CALCIUM CHLORIDE 10% SOLN 1 GRAM/10 ML SYR IV ONE (12:00)
[2017-06-30] MEDS ORDERED: PHENYLEPHRINE HCL 10 MG/ML VIAL IV ONE (12:00)
[2017-06-30] MEDS ORDERED: VANCOMYCIN INJ 1,000 MG in SODIUM CHLOR 0.9% 250 ML INJ 250 ML IV SCH (12:00)
[2017-06-30] MEDS ORDERED: CARDIOPLEGIC IRR 2,000 ML ONE (12:00)
[2017-06-30] MEDS ORDERED: PROPOFOL 500 MG/50 ML BTL IV ONE (12:00)
[2017-06-30] MEDS ORDERED: DO NOT ADM ANY ANTICOAGULANT DRUGS PRN (12:30)
[2017-06-30] MEDS: POTASSIUM CHLOR 20 MEQ PREMIX 100 ML IV PRN ×2 (12:42→14:47)
[2017-06-30] MEDS ORDERED: DEXMEDETOMIDINE 200 MCG in NS 48 ML IV PRN (13:00)
[2017-06-30] MEDS: AMIODARONE 200 MG TAB PO SCH ×2 (13:21→22:09)
[2017-06-30] MEDS: CLEVIDIPINE INJ 50 ML IV PRN ×2 (13:29→17:57)
[2017-06-30] MEDS: CALCIUM CHLORIDE INJ 1 GM in SODIUM CHLORIDE 0.9% INJ 100 ML IV PRN ×2 (13:29→17:36)
--- NOTE | 2017-06-30 13:33 | RADRPT ---
EXAM DATE/TIME: 06/30/2017 12:52 [facility] COMPARISON: CT THORAX W/O CONTRAST, June 10, 2017, 16:41. INDICATIONS : Post op open heart. MEDICAL HISTORY : Cardiovascular disease. Hypertension. SURGICAL HISTORY : Hysterectomy. Appendectomy.Tubal ligation. ENCOUNTER: Initial ACUITY: 1 day PAIN SCORE: Non-responsive. LOCATION: Bilateral chest FINDINGS: Postsurgical changes from open heart surgery are noted. Prosthetic aortic valve is identified. Heart is mildly enlarged. Lungs are hypoaerated with mild central airspace disease. Small left-sided pneumothorax is noted harry g the lateral pleural margin within the base. Endotracheal tube is noted in good position. Nasogastric tube is identified. The tube courses left of midline and is kinked in its distal segment. Esophageal intragastric placement cannot be confirmed. Left subclavian central venous catheter is in place. A stone drain appears to be present in the base of the heart. CONCLUSION: 1. Leftward course of the nasogastric tube with a distal kinked above the diaphragm. Esophageal and g astric placement cannot be confirmed. 2. Possible small left basilar pneumothorax. 3. Status post aortic valve replacement. 4. Endotracheal tube in satisfactory position. Norman Turner MD on June 30, 2017 at 13:21 Board Certified Radiologist. This report was verified electronically.
[2017-06-30] MEDS: ACETAMINOPHEN 1000 MG/100 ML 100 ML IV SCH ×2 (14:00→17:58)
--- NOTE | 2017-06-30 15:29 | PD.CAR.PN ---
CVT Progress Note Subjective/Hospital Course: This very pleasant 77-year-old female with a history of aortic stenosis has been followed since in her 40s, initially seen 06/10/17. With c/o having some increasing fatigue and apparently had worsening severe by echocardiogram. The aortic valve had an area of 0.47 cm2, mean gradient of 56, peak gradient of 101. She had some mild MR and no tricuspid regurgitation. Ejection fraction by echo 65%. She underwent cardiac catheterization today by Dr. Ceron with nonobstructing coronary disease, RA pressures are 4, PA pressures are 35/7, cardiac output of 6.9 with an index of 4.0. We were consulted to evaluate for aortic valve replacement. PAST MEDICAL HISTORY: Significant for aortic stenosis, carotid artery disease which was apparently mild in 08/2016, chronic pain syndrome, hyperlipidemia, hypertension, osteoarthritis, peptic ulcer disease, and scoliosis. She has had varicose veins of the lower extremities. PAST SURGICAL HISTORY: Include appendectomy. She had a breast biopsy, which was negative. 06/30 pt electively admitted surgery: AVR with a 19 Ballard pericardial valve, KERWIN Objective: Vital Signs Date Time Temp Pulse Resp B/P (MAP) Pulse Ox O2 Delivery O2 Flow Rate FiO2 06/30/17 15:00 97 Simple Mask 8.00 06/30/17 15:00 70 06/30/17 15:00 97.2 69 20 140/64 (89) 97 129/49 (75) 06/30/17 14:30 74 143/70 06/30/17 14:00 95 Simple Mask 10.00 06/30/17 14:00 65 144/67 06/30/17 13:48 92 Simple Mask 9.00 06/30/17 13:48 92 Mask 9 06/30/17 13:48 40 06/30/17 13:45 65 143/47 06/30/17 13:29 72 145/49 06/30/17 13:06 98 50 06/30/17 13:00 61 06/30/17 13:00 50 06/30/17 12:30 97.4 63 10 97/52 (67) 99 99/62 (74) 06/30/17 12:30 60 06/30/17 12:27 98 60 06/30/17 06:11 98.1 69 18 196/74 (114) 96 (1) Hyperlipemia (2) Hypertension (3) S/P AVR (aortic valve replacement) (4) Diastolic CHF (5) Aortic stenosis due to bicuspid aortic valve Estefani Ding Jun 30, 2017 15:29
--- NOTE | 2017-06-30 15:33 | HHI.FF ---
Face to Face Verification Diagnosis: (1) Diastolic CHF (2) Hypertension (3) Hyperlipemia (4) Aortic stenosis due to bicuspid aortic valve (5) S/P AVR (aortic valve replacement) Home Health Nursing Order: Signs/symptoms of disease process Medication education-adverse effect Wound care and dressing changes Nursing assessment with vital signs Instructions: Heart and Vascular Surgery patients *Special attention to sternal dressing Mandatory frequency Assess and evaluation, 4 days in a row The next week 3X week 2 times a week for 4 weeks 1 time a week for 5 weeks Schedule Heart and Vascular patients for full 60 day certification period Initial visit Review Open Heart Surgery Discharge Instructions (Sternal precautions, Activity, Elastic hose, Incision care, Driving, Incentive spirometry, Smoking, [place], Work and other) Need Betadine to paint incision Medication reconciliation Importance of follow up care/ check on appointments Make calendar record temperature daily When to call [facility] at Home nurse, review instructions, phone list Incentive Spirometry, demonstration Visit 1- Begin discharge instruction for patient family and/ or caregiver using teach back method- Signs and symptoms of infection Disease characteristics Medicines and side effects Foods and nutrition/ appetite Infection control/ hand washing/ hygiene Visit 2- Continue teaching Discharge instructions- include additional information on smoking cessation , sternal dressing (sternal vac) Visit 3- Continue teaching- Cough and deep breathing, incision monitoring. Choose my plate Visit 4- Continue teaching- Discuss limitations Discuss how they are feeling Discuss progress toward goals Remaining visits- continue teaching and monitoring For any questions please call : Thursday 8am-5pm Heart & Vascular Surgery Office ( Dr. Gaytan & Dr. Cedeno), After Hours / Nights (5pm -8am) Weekends and Holidays Please call [facility] [address] Cardiac Intermediate Care Unit (CIC) Charge Nurse PREVENA Single Use Negative Wound Therapy System Caregiver Instruction Sheet 1. A Prevena dressing system was applied to the chest incision during surgery , to promote wound healing. It works via a suction device (negative pressure wound therapy) to remove low to moderate levels of exudate (drainage) and infectious materials. We recommend that the device stay in place for up to seven days, from day of surgery. 2. Day of Surgery Day of Removal __/ 3. The dressing should only be removed by a health career representative. Please arrange removal of device to coincide with Home Health visit and or with Nursing staff at Rehab 4. If skin reddening or irritation of skin occurs, or excessive drainage, please notify the Cardiovascular Surgeons office at [phone]. 5. Light showering is permissible; however the pump should be disconnected and placed in safe location, where it will not get wet. The dressing should not be exposed to direct spray or submerged in water. No bath tub / shower only. Ensure the end of the tubing attached to the dressing is facing down so that water does not enter the top of the tube. 6. To remove Prevena dressing: press purple button to turn off device / remove the suction. Then disconnect the tubing from the pump. The fixation strips should be stretched away from the skin and the dressing lifted at one corner and peeled back until it has been fully removed. 7. After removal, it is ok to shower daily using liquid dial soap and clean wash cloth, rinse and pat dry, and leave incision open to air dry. For any concerns regarding Prevena dressing, and or wounds, please contact Mónica Ray, patient navigator at [phone] or notify the Cardiovascular Surgeons office at [phone]. Incentive spirometry Q1 hr x 10, while awake, also use acapella device hourly whole awake Sternal Breast Bone Precautions: NO pushing or pulling, ( pt must use sternal pillow to support chest with all activities and with coughing ( takes up to 3 months breast bone to heal ) All females to wear sternal bra , launder as needed Daily incision care: ok to shower daily, no tub bath. Wash all incisions with liquid dial soap, clean wash cloth to each site, rinse and pat dry. Observe for any signs of infection, such as drainage which is dark yellow, russo, green or foul smelling. Immediately report to the surgeon any drainage from the chest incision, or legs, and for any abnormal drainage from the chest tube sites. Notify surgeon if any temp >101.5 degrees F. When specialty dressing removed/ or if you do not have one, continue to shower daily as above, then rinse and pat incision dry and paint with betadine daily x 5 days. Allow steri strips to fall off if you have any. Avoid lotions, creams, salves, oils, etc. for the first month Please see attached forms for additional instructions regarding post Open Heart specialty wound vacuum dressings. MARISELA or Prevena , Dressing to be removed by Nursing staff on _07/07/[address] Cedeno patients , please obtain CBC, BMP, PA & Lat CXR in 2 weeks, results to Dr. Cedeno ( prescription will be given) ( ) (Tele: [phone]) , Valve replacement pts will need 2decho in 2 weeks with results to Dr. Cedeno . Please obtain 2 d echo at your file drawer finisher office if possible F/U appointment: as per DC instructions: PCP in 2 weeks, CV surgeon 2 weeks, Contract Administration Specialist 3-4 weeks For any questions regarding incisions/ dressing / meds / post op care or above Symptoms, Thursday 8am-5pm Heart & Vascular Surgery Office ( Dr. Gaytan & Dr. Cedeno), After Hours / Nights (5pm -8am) Weekends and Holidays Please call [facility] [address] Cardiac Intermediate Care Unit (CIC) Charge Nurse I have seen patient Vale Lilly on 06/30/17. My clinical findings support the need for the requested home health care services because: Deconditioned w/ increased weakness I certify that my clinical findings support that this patient is homebound because: Post-op weakness Estefani Ding Jun 30, 2017 15:33
[2017-06-30] MEDS: ONDANSETRON HCL 4 MG/2 ML VIAL IV PUSH PRN ×2 (15:36→20:30)
[2017-06-30] MEDS ORDERED: CALCIUM CHLORIDE INJ 1 GM in SODIUM CHLORIDE 0.9% INJ 100 ML IV ONE (19:00)
[2017-06-30] MEDS: RESP: ALBUTEROL 2.5 MG/IPRATROPIUM 0.5 MG NEB (SCH) NEB (22:00)
[2017-06-30] MEDS: VANCOMYCIN INJ 1,000 MG in SODIUM CHLOR 0.9% 250 ML INJ 250 ML IV SCH (22:08)
[2017-06-30] MEDS: SODIUM CHLORIDE 0.9% FLUSH 10 ML FLUSH IV FLUSH SCH (22:08)
[2017-06-30] MEDS: ATORVASTATIN 10 MG TAB PO SCH (22:09)
[2017-06-30] MEDS: hydrALAZINE HCL 20 MG/ML VIAL IV PUSH PRN (22:11)
[2017-07-01] VITALS (11 sets, daily range): BP systolic 115–157; BP diastolic 33–70; PULSE 77–97; RESP 16–20; TEMP 97.7–99.4; O2SAT 92–98
[2017-07-01] MEDS: ACETAMINOPHEN 1000 MG/100 ML 100 ML IV SCH ×2 (01:00→07:19)
[2017-07-01] MEDS: RESP: ALBUTEROL 2.5 MG/IPRATROPIUM 0.5 MG NEB (SCH) NEB ×4 (02:47→20:38)
--- NOTE | 2017-07-01 04:00 | RADRPT ---
EXAM DATE/TIME: 07/01/2017 03:22 [facility] COMPARISON: CHEST SINGLE AP, June 30, 2017, 12:52. INDICATIONS : Short of breath. MEDICAL HISTORY : Cardiovascular disease. Hypertension. SURGICAL HISTORY : Hysterectomy. Appendectomy.Tubal ligation. ENCOUNTER: Subsequent ACUITY: 2 days PAIN SCORE: 0/10 LOCATION: Bilateral chest FINDINGS: Mild bibasilar atelectasis developing. No pleural effusion. No reproducible pneumothorax. Heart size upper limits of normal. Left subclavian central venous catheter with tip in the superior vena cava unchanged. Endotracheal tu be and nasogastric tube has been removed. Previous median sternotomy and valve replacement. CONCLUSION: 1. Mild bibasilar atelectasis. 2. Endotracheal tube and nasogastric tube out. 3. No perceptible pneumothorax. David Field MD on July 01, 2017 at 3:58 Board Certified Radiologist. This report was verified electronically.
[2017-07-01] MEDS: hydrALAZINE HCL 20 MG/ML VIAL IV PUSH PRN (04:37)
[2017-07-01 05:11] LABS: HEMATOCRIT 37.4 % (35.0-46.0); HEMOGLOBIN 12.6 GM/DL (11.6-15.3); MEAN CELL VOLUME 90.8 FL (80.0-100.0); MEAN CORPUSCULAR HEMOGLOBIN 30.5 PG (27.0-34.0); MEAN CORPUSCULAR HGB CONC 33.6 % (32.0-36.0); MEAN PLATELET VOLUME 9.6 FL (7.0-11.0); PLATELET COUNT 113 TH/MM3 (150-450); RED BLOOD COUNT 4.12 MIL/MM3 (4.00-5.30); RED CELL DISTRIBUTION WIDTH 14.5 % (11.6-17.2); WHITE BLOOD COUNT 17.2 TH/MM3 (4.0-11.0)
[2017-07-01 05:20] LABS: BICARBONATE 24.6 MEQ/L (21.0-32.0); CALCIUM 8.1 MG/DL (8.5-10.1); CREATININE 0.38 MG/DL (0.50-1.00)
[2017-07-01] MEDS: PANTOPRAZOLE SOD 40 MG DELAYED RELEASE TAB PO SCH (05:46)
[2017-07-01] MEDS: AMIODARONE 200 MG TAB PO SCH ×3 (05:46→20:59)
[2017-07-01] MEDS: VANCOMYCIN INJ 1,000 MG in SODIUM CHLOR 0.9% 250 ML INJ 250 ML IV SCH ×2 (07:20→21:15)
[2017-07-01] MEDS: SODIUM CHLORIDE 0.9% FLUSH 10 ML FLUSH IV FLUSH SCH ×2 (09:00→21:00)
[2017-07-01] MEDS ORDERED: POLYETHYLENE GLYCOL 17 GM PKG PO SCH (09:00)
[2017-07-01] MEDS ORDERED: DOCUSATE SODIUM 100 MG CAP PO SCH (09:00)
[2017-07-01] MEDS ORDERED: SOD PHOSPHATE/SOD BIPHOSPHATE (ADULT) ENEMA 133ML RECTAL PRN (09:15)
[2017-07-01] MEDS ORDERED: ACETAMINOPHEN/HYDROcodone 325 MG/5 MG TAB PO PRN (09:15)
[2017-07-01] MEDS ORDERED: GLUCAGON 1 MG/ML VIAL OTHER PRN (09:15)
[2017-07-01] MEDS ORDERED: DEXTROSE 50% IN WATER 50 ML VIAL(D50) IV PUSH PRN (09:15)
[2017-07-01] MEDS ORDERED: FUROSEMIDE 40 MG/4 ML VIAL IV PUSH ONE (09:15)
[2017-07-01] MEDS ORDERED: BISACODYL 10 MG SUPP RECTAL PRN (09:15)
[2017-07-01] MEDS ORDERED: POTASSIUM CHLORIDE 10 MEQ CONTROLLED RELEASE TAB PO ONE (09:15)
[2017-07-01] MEDS: INSULIN ASPART SUPPLEMENTAL SCALE SQ SCH ×4 (10:00→22:00)
[2017-07-01] MEDS: LACTOBACILLUS ACIDOPHILUS TAB PO SCH (10:06)
[2017-07-01] MEDS: ATENOLOL 25 MG TAB PO SCH ×2 (10:06→20:59)
[2017-07-01] MEDS: ASPIRIN 81 MG CHEW TAB PO SCH (10:07)
[2017-07-01] MEDS: DOCUSATE SODIUM 100 MG CAP PO SCH ×2 (10:07→20:57)
[2017-07-01] MEDS: ACETAMINOPHEN/HYDROcodone 325 MG/5 MG TAB PO PRN ×3 (10:08→21:03)
[2017-07-01] MEDS: POLYETHYLENE GLYCOL 17 GM PKG PO SCH (10:08)
[2017-07-01] MEDS: LOSARTAN 50 MG TAB PO SCH (10:19)
--- NOTE | 2017-07-01 12:13 | EKG ---
Date Performed: 07/01/2017 Time Performed: 04:49:42 PTAGE: 77 years EKG: Sinus rhythm . Left axis deviation Inferior infarct - age undetermined Anteroseptal infarct - age undetermined Lat eral ST-T changes Abnormal ECG Compared to PREVIOUS TRACING , rate faster DOCTOR: Lauren Paez Interpretating Date/Time 07/01/2017 12:11:54
--- NOTE | 2017-07-01 12:20 | PD.CAR.PN ---
CVT Progress Note Subjective/Hospital Course: This very pleasant 77-year-old female with a history of aortic stenosis has been followed since in her 40s, initially seen 06/10/17. With c/o having some increasing fatigue and apparently had worsening severe by echocardiogram. The aortic valve had an area of 0.47 cm2, mean gradient of 56, peak gradient of 101. She had some mild MR and no tricuspid regurgitation. Ejection fraction by echo 65%. She underwent cardiac catheterization today by Dr. Ceron with nonobstructing coronary disease, RA pressures are 4, PA pressures are 35/7, cardiac output of 6.9 with an index of 4.0. We were consulted to evaluate for aortic valve replacement. PAST MEDICAL HISTORY: Significant for aortic stenosis, carotid artery disease which was apparently mild in 08/2016, chronic pain syndrome, hyperlipidemia, hypertension, osteoarthritis, peptic ulcer disease, and scoliosis. She has had varicose veins of the lower extremities. PAST SURGICAL HISTORY: Include appendectomy. She had a breast biopsy, which was negative. 06/30 pt electively admitted surgery: AVR with a 19 Ballard pericardial valve, KERWIN extubated after surgery crystalloid 2800cc, 450cc cell saver, EBL 900cc 07/01 up in chair, pain meds adjusted in NSR on ASA BB , statin, amiodarone stable for transfer to stepdown Objective: GENERAL: A&O x 3 SKIN: Warm and dry. prevena dressing to chest HEAD: Normocephalic. EYES: No scleral icterus. No injection or drainage. NECK: Supple, trachea midline. No JVD or lymphadenopathy. CARDIOVASCULAR: Regular rate and rhythm without murmurs, gallops, or rubs. RESPIRATORY: Breath sounds equal bilaterally. No accessory muscle use. diminished in bases , chest tube to wall suction, no air leak drained 260cc/ 12 hrs GASTROINTESTINAL: Abdomen soft, non-tender, nondistended. MUSCULOSKELETAL: No cyanosis, or edema. BACK: Nontender without obvious deformity. No CVA tenderness. Vital Signs Date Time Temp Pulse Resp B/P (MAP) Pulse Ox O2 Delivery O2 Flow Rate FiO2 07/01/17 11:00 93 Nasal Cannula 3.00 Simple Mask 07/01/17 09:45 93 Nasal Cannula 2.00 07/01/17 07:31 84 154/41 07/01/17 07:00 87 07/01/17 07:00 98.4 86 16 149/62 (91) 97 154/41 (78) 07/01/17 07:00 97 Nasal Cannula 3.00 Simple Mask 07/01/17 04:00 99.4 92 20 130/54 (79) 95 126/35 (65) 07/01/17 04:00 95 Nasal Cannula 3.00 Simple Mask 07/01/17 04:00 92 07/01/17 00:00 82 07/01/17 00:00 99.2 82 20 115/48 (70) 97 115/33 (60) 07/01/17 00:00 97 Nasal Cannula 3.00 Simple Mask 06/30/17 22:30 86 103/32 06/30/17 22:00 83 145/44 06/30/17 21:27 97 Nasal Cannula 3.00 06/30/17 20:00 80 06/30/17 20:00 95 Nasal Cannula 3.00 Simple Mask 06/30/17 20:00 99.2 80 18 138/74 (95) 95 147/52 (83) 06/30/17 19:00 79 139/48 06/30/17 17:57 68 125/46 06/30/17 15:00 97 Simple Mask 8.00 06/30/17 15:00 70 06/30/17 15:00 97.2 69 20 140/64 (89) 97 129/49 (75) 06/30/17 14:30 74 143/70 06/30/17 14:00 95 Simple Mask 10.00 06/30/17 14:00 65 144/67 06/30/17 13:48 92 Simple Mask 9.00 06/30/17 13:48 92 Mask 9 06/30/17 13:48 40 06/30/17 13:45 65 143/47 06/30/17 13:29 72 145/49 06/30/17 13:06 98 50 06/30/17 13:00 61 06/30/17 13:00 50 06/30/17 12:30 97.4 63 10 97/52 (67) 99 99/62 (74) 06/30/17 12:30 60 06/30/17 12:27 98 60 Labs: Laboratory Tests Test 07/01/17 04:20 White Blood Count 17.2 TH/MM3 (4.0-11.0) Red Blood Count 4.12 MIL/MM3 (4.00-5.30) Hemoglobin 12.6 GM/DL (11.6-15.3) Hematocrit 37.4 % (35.0-46.0) Mean Corpuscular Volume 90.8 FL (80.0-100.0) Mean Corpuscular Hemoglobin 30.5 PG (27.0-34.0) Mean Corpuscular Hemoglobin Concent 33.6 % (32.0-36.0) Red Cell Distribution Width 14.5 % (11.6-17.2) Platelet Count 113 TH/MM3 (150-450) Mean Platelet Volume 9.6 FL (7.0-11.0) Blood Urea Nitrogen 12 MG/DL (7-18) Creatinine 0.38 MG/DL (0.50-1.00) Random Glucose 102 MG/DL (74-106) Calcium Level 8.1 MG/DL (8.5-10.1) Magnesium Level 2.0 MG/DL (1.5-2.5) Sodium Level 145 MEQ/L (136-145) Potassium Level 4.0 MEQ/L (3.5-5.1) Chloride Level 111 MEQ/L (98-107) Carbon Dioxide Level 24.6 MEQ/L (21.0-32.0) Anion Gap 9 MEQ/L (5-15) Estimat Glomerular Filtration Rate 163 ML/MIN (>89) Result Diagram: 07/01/1741907/01/17419 Telemetry: NSR R BBB unchanged (1) Aortic stenosis due to bicuspid aortic valve (2) S/P AVR (aortic valve replacement) Plan: on ASA pain control pulm toileting nebs ezpap acapella CM to eval for HHC at discharge (3) Hyperlipemia Plan: on statin (4) Hypertension Plan: on Cozaar, atenolol (5) Diastolic CHF Plan: gentle diuresis + 4 kg Estefani Ding Jul 01, 2017 12:20
[2017-07-01] MEDS: KETOROLAC TROMETHAMINE 30 MG/ML (IVP) VIAL IV PUSH SCH (17:36)
[2017-07-01] MEDS: SENNOSIDES 8.6 MG TAB PO SCH (20:58)
[2017-07-01] MEDS: ATORVASTATIN 10 MG TAB PO SCH (20:59)
[2017-07-02] VITALS (23 sets, daily range): BP systolic 101–147; BP diastolic 52–67; PULSE 66–82; RESP 18–22; TEMP 98–98.3; O2SAT 92–97
[2017-07-02] MEDS: KETOROLAC TROMETHAMINE 30 MG/ML (IVP) VIAL IV PUSH SCH ×5 (00:35→23:37)
[2017-07-02] MEDS: ACETAMINOPHEN/HYDROcodone 325 MG/5 MG TAB PO PRN ×3 (01:36→23:38)
[2017-07-02] MEDS: INSULIN ASPART SUPPLEMENTAL SCALE SQ SCH ×6 (02:00→21:00)
[2017-07-02 05:30] LABS: AUTOMATED NEUTROPHIL # 14.3 TH/MM3 (1.8-7.7); BASOPHIL % 0.2 % (0.0-2.0); EOSINOPHIL % 0.1 % (0.0-4.0); HEMATOCRIT 36.9 % (35.0-46.0); HEMOGLOBIN 12.2 GM/DL (11.6-15.3); LYMPH % 7.3 % (9.0-44.0); LYMPHOCYTE # 1.2 TH/MM3 (1.0-4.8); MEAN CELL VOLUME 92.1 FL (80.0-100.0); MEAN CORPUSCULAR HEMOGLOBIN 30.5 PG (27.0-34.0); MEAN CORPUSCULAR HGB CONC 33.1 % (32.0-36.0); MEAN PLATELET VOLUME 9.6 FL (7.0-11.0); MONO % 7.7 % (0.0-8.0); MONOCYTE # 1.3 TH/MM3 (0-0.9); NEUT % 84.7 % (16.0-70.0); PLATELET COUNT 107 TH/MM3 (150-450); RED BLOOD COUNT 4.01 MIL/MM3 (4.00-5.30); RED CELL DISTRIBUTION WIDTH 14.7 % (11.6-17.2); WHITE BLOOD COUNT 16.8 TH/MM3 (4.0-11.0)
[2017-07-02 06:16] LABS: BICARBONATE 27.7 MEQ/L (21.0-32.0); CALCIUM 8.1 MG/DL (8.5-10.1); CREATININE 0.55 MG/DL (0.50-1.00); MAGNESIUM 2.4 MG/DL (1.5-2.5)
[2017-07-02] MEDS: PANTOPRAZOLE SOD 40 MG DELAYED RELEASE TAB PO SCH (06:35)
[2017-07-02] MEDS: AMIODARONE 200 MG TAB PO SCH ×3 (06:35→21:17)
[2017-07-02] MEDS: RESP: ALBUTEROL 2.5 MG/IPRATROPIUM 0.5 MG NEB (SCH) NEB (07:41)
[2017-07-02] MEDS: SODIUM CHLORIDE 0.9% FLUSH 10 ML FLUSH IV FLUSH SCH ×2 (09:00→21:17)
[2017-07-02] MEDS: POLYETHYLENE GLYCOL 17 GM PKG PO SCH (09:00)
[2017-07-02] MEDS: MAGNESIUM HYDROXIDE SUSP 30 ML CUP PO SCH (09:00)
[2017-07-02] MEDS: MULTIVITAMINS/MINERALS THERAPEUTIC TAB PO SCH (09:03)
[2017-07-02] MEDS: DOCUSATE SODIUM 100 MG CAP PO SCH ×2 (09:04→21:18)
[2017-07-02] MEDS: ASPIRIN 81 MG CHEW TAB PO SCH (09:04)
[2017-07-02] MEDS: ATENOLOL 25 MG TAB PO SCH ×2 (09:04→21:17)
[2017-07-02] MEDS: LACTOBACILLUS ACIDOPHILUS TAB PO SCH (09:05)
[2017-07-02] MEDS: LOSARTAN 50 MG TAB PO SCH (09:05)
--- NOTE | 2017-07-02 10:42 | PD.CAR.PN ---
CVT Progress Note Subjective/Hospital Course: This very pleasant 77-year-old female with a history of aortic stenosis has been followed since in her 40s, initially seen 06/10/17. With c/o having some increasing fatigue and apparently had worsening severe by echocardiogram. The aortic valve had an area of 0.47 cm2, mean gradient of 56, peak gradient of 101. She had some mild MR and no tricuspid regurgitation. Ejection fraction by echo 65%. She underwent cardiac catheterization today by Dr. Ceron with nonobstructing coronary disease, RA pressures are 4, PA pressures are 35/7, cardiac output of 6.9 with an index of 4.0. We were consulted to evaluate for aortic valve replacement. PAST MEDICAL HISTORY: Significant for aortic stenosis, carotid artery disease which was apparently mild in 08/2016, chronic pain syndrome, hyperlipidemia, hypertension, osteoarthritis, peptic ulcer disease, and scoliosis. She has had varicose veins of the lower extremities. PAST SURGICAL HISTORY: Include appendectomy. She had a breast biopsy, which was negative. 06/30 pt electively admitted surgery: AVR with a 19 Ballard pericardial valve, KERWIN extubated after surgery crystalloid 2800cc, 450cc cell saver, EBL 900cc 07/01 up in chair, pain meds adjusted in NSR on ASA BB , statin, amiodarone stable for transfer to stepdown 07/02 doing well chest tube removed without difficulty on room air PT/OOB for rehab at discharge eval for tomorrow Objective: Vital Signs Date Time Temp Pulse Resp B/P (MAP) Pulse Ox O2 Delivery O2 Flow Rate FiO2 07/02/17 10:00 78 07/02/17 09:00 76 07/02/17 08:00 98.2 74 20 121/59 (79) 97 07/02/17 08:00 100 Nasal Cannula 2.00 07/02/17 08:00 75 07/02/17 07:44 95 Nasal Cannula 2.00 28 07/02/17 07:36 20 07/02/17 07:36 20 07/02/17 07:00 74 07/02/17 04:00 Nasal Cannula 2.00 07/02/17 04:00 73 07/02/17 04:00 98.1 76 20 147/67 (93) 97 07/02/17 00:00 Nasal Cannula 2.00 07/02/17 00:00 98.0 82 18 130/63 (85) 95 07/02/17 00:00 74 07/01/17 20:38 93 21 07/01/17 20:00 77 07/01/17 20:00 97.7 81 18 137/64 (88) 92 07/01/17 20:00 Nasal Cannula 2.00 07/01/17 18:00 89 07/01/17 17:00 90 07/01/17 16:00 97 07/01/17 15:00 90 07/01/17 15:00 98 Nasal Cannula 3.00 07/01/17 15:00 98.6 95 19 157/70 (99) 98 07/01/17 11:00 98.2 95 16 155/63 (93) 93 Arterial Line 07/01/17 11:00 93 Nasal Cannula 3.00 Simple Mask 07/01/17 11:00 92 Labs: Laboratory Tests Test 07/02/17 05:00 White Blood Count 16.8 TH/MM3 (4.0-11.0) Red Blood Count 4.01 MIL/MM3 (4.00-5.30) Hemoglobin 12.2 GM/DL (11.6-15.3) Hematocrit 36.9 % (35.0-46.0) Mean Corpuscular Volume 92.1 FL (80.0-100.0) Mean Corpuscular Hemoglobin 30.5 PG (27.0-34.0) Mean Corpuscular Hemoglobin Concent 33.1 % (32.0-36.0) Red Cell Distribution Width 14.7 % (11.6-17.2) Platelet Count 107 TH/MM3 (150-450) Mean Platelet Volume 9.6 FL (7.0-11.0) Neutrophils (%) (Auto) 84.7 % (16.0-70.0) Lymphocytes (%) (Auto) 7.3 % (9.0-44.0) Monocytes (%) (Auto) 7.7 % (0.0-8.0) Eosinophils (%) (Auto) 0.1 % (0.0-4.0) Basophils (%) (Auto) 0.2 % (0.0-2.0) Neutrophils # (Auto) 14.3 TH/MM3 (1.8-7.7) Lymphocytes # (Auto) 1.2 TH/MM3 (1.0-4.8) Monocytes # (Auto) 1.3 TH/MM3 (0-0.9) Eosinophils # (Auto) 0.0 TH/MM3 (0-0.4) Basophils # (Auto) 0.0 TH/MM3 (0-0.2) CBC Comment DIFF FINAL Differential Comment Blood Urea Nitrogen 23 MG/DL (7-18) Creatinine 0.55 MG/DL (0.50-1.00) Random Glucose 99 MG/DL (74-106) Calcium Level 8.1 MG/DL (8.5-10.1) Magnesium Level 2.4 MG/DL (1.5-2.5) Sodium Level 138 MEQ/L (136-145) Potassium Level 5.1 MEQ/L (3.5-5.1) Chloride Level 106 MEQ/L (98-107) Carbon Dioxide Level 27.7 MEQ/L (21.0-32.0) Anion Gap 4 MEQ/L (5-15) Estimat Glomerular Filtration Rate 107 ML/MIN (>89) Result Diagram: 07/02/17 0500 07/02/17 0500 (1) Aortic stenosis due to bicuspid aortic valve (2) S/P AVR (aortic valve replacement) Plan: on ASA chest tube removed pain control pulm toileting nebs ezpap acapella CM to eval for HHC at discharge (3) Hyperlipemia Plan: on statin (4) Hypertension Plan: on Cozaar, atenolol (5) Diastolic CHF Plan: gentle diuresis + 4 kg Estefani Ding Jul 02, 2017 10:42
[2017-07-02] MEDS ORDERED: FUROSEMIDE 20 MG/2 ML VIAL IV PUSH ONE (10:45)
[2017-07-02] MEDS: SENNOSIDES 8.6 MG TAB PO SCH (21:18)
[2017-07-02] MEDS: ATORVASTATIN 10 MG TAB PO SCH (21:18)
[2017-07-03] VITALS (17 sets, daily range): BP systolic 118–140; BP diastolic 62–64; PULSE 65–76; RESP 20–21; TEMP 98–98.4; O2SAT 92–97
--- NOTE | 2017-07-03 04:57 | RADRPT ---
EXAM DATE/TIME: 07/03/2017 04:25 [facility] COMPARISON: CHEST SINGLE AP, July 01, 2017, 3:22. INDICATIONS : Respiratory disease. MEDICAL HISTORY : Cardiovascular disease. Hypertension SURGICAL HISTORY : Hysterectomy. Appendectomy.Tubal ligation ENCOUNTER: Subsequent ACUITY: 1 day PAIN SCORE: Non-responsive. LOCATION: Bilateral chest FINDINGS: A single portable frontal view of the chest shows persistent bibasilar consolidations. No effusions. Heart is at the upper limits of normal the ribs both bones. Prosthetic heart valve and median sternot stefano wires. Left subclavian central line. CONCLUSION: Unchanged bibasilar infiltrates. No pneumothorax. Melvin Cardenas Jr., MD on July 03, 2017 at 4:55 Board Certified Radiologist. This report was verified electronically.
[2017-07-03] MEDS: PANTOPRAZOLE SOD 40 MG DELAYED RELEASE TAB PO SCH (04:58)
[2017-07-03] MEDS: KETOROLAC TROMETHAMINE 30 MG/ML (IVP) VIAL IV PUSH SCH ×2 (04:58→09:36)
[2017-07-03] MEDS: AMIODARONE 200 MG TAB PO SCH (04:58)
[2017-07-03] MEDS: INSULIN ASPART SUPPLEMENTAL SCALE SQ SCH ×2 (07:18→09:36)
[2017-07-03] MEDS: POLYETHYLENE GLYCOL 17 GM PKG PO SCH (08:57)
[2017-07-03] MEDS: MAGNESIUM HYDROXIDE SUSP 30 ML CUP PO SCH (08:57)
[2017-07-03] MEDS: ATENOLOL 25 MG TAB PO SCH (08:58)
[2017-07-03] MEDS: LACTOBACILLUS ACIDOPHILUS TAB PO SCH (08:58)
[2017-07-03] MEDS: ASPIRIN 81 MG CHEW TAB PO SCH (08:59)
[2017-07-03] MEDS: LOSARTAN 50 MG TAB PO SCH (08:59)
[2017-07-03] MEDS: DOCUSATE SODIUM 100 MG CAP PO SCH (08:59)
[2017-07-03] MEDS: MULTIVITAMINS/MINERALS THERAPEUTIC TAB PO SCH (08:59)
[2017-07-03] MEDS: SODIUM CHLORIDE 0.9% FLUSH 10 ML FLUSH IV FLUSH SCH (09:00)
[2017-07-03] MEDS ORDERED: FUROSEMIDE 40 MG/4 ML VIAL IV PUSH ONE (09:15)
[2017-07-03] MEDS ORDERED: THERM PO (13:10)
[2017-07-03] MEDS ORDERED: COZA50TA PO (13:10)
[2017-07-03] MEDS ORDERED: HYDR-3516 PO (13:10)
[2017-07-03] MEDS ORDERED: AMIO200T PO (13:10)
--- NOTE | 2017-07-03 13:19 | HHI.DS ---
Discharge Summary Admission Date Jun 30, 2017 at 05:24 Discharge Date: Jul 03, 2017 Admitting Diagnosis aortic stenosis diastolic HF (1) Diastolic CHF Diagnosis: Principal ICD Codes: I50.30 - Unspecified diastolic (congestive) heart failure (2) Aortic stenosis due to bicuspid aortic valve Diagnosis: Principal ICD Codes: Q23.0 - Congenital stenosis of aortic valve; Q23.1 - Congenital insufficiency of aortic valve (3) Hyperlipemia Diagnosis: Principal ICD Codes: E78.5 - Hyperlipidemia, unspecified (4) Hypertension Diagnosis: Principal ICD Codes: I10 - Essential (primary) hypertension (5) S/P AVR (aortic valve replacement) Diagnosis: Secondary ICD Codes: Z95.2 - Presence of prosthetic heart valve Procedures AVR with a 19 Ballard pericardial valve 06/30 KERWIN Brief History This very pleasant 77-year-old female with a history of aortic stenosis has been followed since in her 40s, initially seen 06/10/17. With c/o having some increasing fatigue and apparently had worsening severe by echocardiogram. The aortic valve had an area of 0.47 cm2, mean gradient of 56, peak gradient of 101. She had some mild MR and no tricuspid regurgitation. Ejection fraction by echo 65%. She underwent cardiac catheterization today by Dr. Ceron with nonobstructing coronary disease, RA pressures are 4, PA pressures are 35/7, cardiac output of 6.9 with an index of 4.0. We were consulted to evaluate for aortic valve replacement. PAST MEDICAL HISTORY: Significant for aortic stenosis, carotid artery disease which was apparently mild in 08/2016, chronic pain syndrome, hyperlipidemia, hypertension, osteoarthritis, peptic ulcer disease, and scoliosis. She has had varicose veins of the lower extremities. PAST SURGICAL HISTORY: Include appendectomy. She had a breast biopsy, which was negative. CBC/BMP: 07/02/17 0500 07/02/17 0500 Significant Findings Laboratory Tests Test 07/01/17 04:20 07/02/17 05:00 White Blood Count 17.2 TH/MM3 (4.0-11.0) 16.8 TH/MM3 (4.0-11.0) Platelet Count 113 TH/MM3 (150-450) 107 TH/MM3 (150-450) Creatinine 0.38 MG/DL (0.50-1.00) Calcium Level 8.1 MG/DL (8.5-10.1) 8.1 MG/DL (8.5-10.1) Chloride Level 111 MEQ/L (98-107) Neutrophils (%) (Auto) 84.7 % (16.0-70.0) Lymphocytes (%) (Auto) 7.3 % (9.0-44.0) Neutrophils # (Auto) 14.3 TH/MM3 (1.8-7.7) Monocytes # (Auto) 1.3 TH/MM3 (0-0.9) Blood Urea Nitrogen 23 MG/DL (7-18) Anion Gap 4 MEQ/L (5-15) Imaging Last Impressions Chest X-Ray 07/03/17 0600 Signed Impressions: Service Date/Time: Monday, July 03, 2017 04:25 - CONCLUSION: Unchanged bibasilar infiltrates. No pneumothorax. Melvin Cardenas Jr., MD PE at Discharge GENERAL: A&O x 3 SKIN: Warm and dry. Prevena dressing to chest HEAD: Normocephalic. EYES: No scleral icterus. No injection or drainage. NECK: Supple, trachea midline. No JVD or lymphadenopathy. CARDIOVASCULAR: Regular rate and rhythm without murmurs, gallops, or rubs. RESPIRATORY: Breath sounds equal bilaterally. No accessory muscle use. GASTROINTESTINAL: Abdomen soft, non-tender, nondistended. MUSCULOSKELETAL: No cyanosis, or edema. BACK: Nontender without obvious deformity. No CVA tenderness. Hospital Course 06/30 pt electively admitted surgery: AVR with a 19 Ballard pericardial valve, KERWIN extubated after surgery crystalloid 2800cc, 450cc cell saver, EBL 900cc 07/01 up in chair, pain meds adjusted in NSR on ASA BB , statin, amiodarone stable for transfer to stepdown 07/02 doing well chest tube removed without difficulty on room air PT/OOB for rehab at discharge eval for tomorrow 07/03 remains on room air NSR + BM stable for transfer to SNF CXR noted, no PTX Pt Condition on Discharge: Good Discharge Disposition: Discharge to SNF Discharge Instructions DIET: Follow Instructions for: Heart Healthy Diet Activities you can perform: Shower Only-No Bath Activities to avoid: Strenuous Activity, Driving Additional Activity Instructio: PREVENA Single Use Negative Wound Therapy System Caregiver Instruction Sheet 1.A Prevena dressing system was applied to the chest incision during surgery, to promote wound healing. It works via a suction device (negative pressure wound therapy) to remove low to moderate levels of exudate (drainage) and infectious materials. We recommend that the device stay in place for up to seven days, from day of surgery. 2. Day of Surgery____/ Day of Removal / 3.The dressing should only be removed by a health tire care manager. Please arrange removal of device to coincide with Home Health visit and or with Nursing staff at Rehab 4.If skin reddening or irritation of skin occurs, or excessive drainage, please notify the Cardiovascular Surgeons office at [phone]. 5.Light showering is permissible; however the pump should be disconnected and placed in safe location, where it will not get wet. The dressing should not be exposed to direct spray or submerged in water. No bath tub / shower only. Ensure the end of the tubing attached to the dressing is facing down so that water does not enter the top of the tube. 6.To remove Prevena dressing: press purple button to turn off device / remove the suction. Then disconnect the tubing from the pump. The fixation strips should be stretched away from the skin and the dressing lifted at one corner and peeled back until it has been fully removed. 7.After removal, it is ok to shower daily using liquid dial soap and clean wash cloth, rinse and pat dry, and leave incision open to air dry. For any concerns regarding Prevena dressing, and or wounds, please contact Mónica Ray, patient navigator at [phone] or notify the Cardiovascular Surgeons office at [phone]. Incentive spirometry Q1 hr x 10, while awake, also use acapella device hourly whole awake Sternal Breast Bone Precautions: NO pushing or pulling, ( pt must use sternal pillow to support chest with all activities and with coughing ( takes up to 3 months breast bone to heal ) All females to wear sternal bra , launder as needed Daily incision care: ok to shower daily, no tub bath. Wash all incisions with liquid dial soap, clean wash cloth to each site, rinse and pat dry. Observe for any signs of infection, such as drainage which is dark yellow, russo, green or foul smelling. Immediately report to the surgeon any drainage from the chest incision, or legs, and for any abnormal drainage from the chest tube sites. Notify surgeon if any temp >101.5 degrees F. When specialty dressing removed/ or if you do not have one, continue to shower daily as above, then rinse and pat incision dry and paint with betadine daily x 5 days. Allow steri strips to fall off if you have any. Avoid lotions, creams, salves, oils, etc. for the first month Please see attached forms for additional instructions regarding post Open Heart specialty wound vacuum dressings. MARISELA or Prevena , Dressing to be removed by Nursing staff on ___07/07/17____ For Dr. Cedeno patients , please obtain CBC, BMP, PA & Lat CXR in 2 weeks, results to Dr. Cedeno ( prescription will be given) ( ) (Tele: [phone]) , Valve replacement pts will need 2decho in 2 weeks with results to Dr. Cedeno . Please obtain 2 d echo at your passenger interline clerk office if possible F/U appointment: as per DC instructions: PCP in 2 weeks, CV surgeon 2 weeks, Top Carrier 3-4 weeks For any questions regarding incisions/ dressing / meds / post op care or above Symptoms, Thursday 8am-5pm Heart & Vascular Surgery Office ( Dr. Gaytan & Dr. Cedeno), After Hours / Nights (5pm -8am) Weekends and Holidays Please call [facility] ([facility]) Charge Nurse Follow up Referrals: Cardiology - 4 Weeks with Ruperto Pak MD PCP Follow-up - 2 Weeks with Jean Claude Marsh M.d. Surgical - 2 Weeks with Estefani Ding New Orders: 2D ECHO - 2 Weeks BASIC METABOLIC PROF - 2 Weeks CBC NO DIFF - 2 Weeks X-RAY CHEST PA & LAT - 2 Weeks New Medications: Amiodarone (Amiodarone) 200 Mg Tab 200 MG PO Q12HR for heart rhythm, #28 TAB 0 Refills x 2 weeks only , no refill Hydrocodone/Acetaminophen (Hydrocodone-Acetamin 5-325 mg) 5 Mg-325 Mg Tablet 1 TAB PO Q4H PRN for PAIN SCALE 1 TO 5, #40 TAB 0 Refills Losartan (Cozaar) 50 Mg Tab 50 MG PO DAILY for Blood Pressure Management, #30 TAB 2 Refills Multiple Vitamins W/ Minerals (Thera M Plus) 1 Tab 1 TAB PO DAILY for multi vitamin, #30 TAB 2 Refills Continued Medications: Aspirin DR (Aspirin EC) 81 Mg Tabdr 81 MG PO DAILY, TAB 0 Refills Atenolol (Atenolol) 25 Mg Tab 25 MG PO BID for Blood Pressure Management, #60 TAB 0 Refills Atorvastatin (Atorvastatin) 10 Mg Tab 10 MG PO HS for Cholesterol Management, #30 TAB 0 Refills Docusate Sodium (Colace) 100 Mg Capsule 100 MG PO BID for Prevent Constipation, #30 CAP 0 Refills Lactobacillus Acidophilus (Probiotic) 10 Billion Cell Cap 1 CAP PO DAILY for Nutritional Supplement, #90 CAP 0 Refills Polyethylene Glycol 3350 Powder (Miralax Powder) 17 Gm Powd 8.5 GM PO DAILY for Constipation, #1 CAN 0 Refills Mix and dissolve one measuring cap-ful (17 grams) in water or juice. Discontinued Medications: Hydrocodone-Acetaminophen ([place]) 5 Mg-325 Mg Tab 1 TAB PO Q6H PRN for PAIN, TAB 0 Refills Losartan (Losartan) 100 Mg Tab 100 MG PO DAILY for Blood Pressure Management, #30 TAB 0 Refills Estefani Ding Jul 03, 2017 13:19
== END 2017-07-03 14:45 | DRG 220 ==
LOC: HSDI 05:24 → HCVI 12:30 → HCPC 07-01 14:25
PROVIDERS: ADMIT Thoracic Surgery (Cardiothoracic Vascular Surgery); ATTEND Thoracic Surgery (Cardiothoracic Vascular Surgery)
PROC: 5A1221Z Performance of Cardiac Output, Continuous (ICD-10-PCS; 2017-06-30)
PROC: B246ZZ4 Ultrasonography of Right and Left Heart, Transesophageal (ICD-10-PCS; 2017-06-30)
PROC: 02RF08Z Replacement of Aortic Valve with Zooplastic Tissue, Open Approach (ICD-10-PCS; principal; 2017-06-30 07:37)
DX: Q23.0 Congenital stenosis of aortic valve (principal); I50.30 Unspecified diastolic (congestive) heart failure; I11.0 Hypertensive heart disease with heart failure; Q23.1 Congenital insufficiency of aortic valve; E78.5 Hyperlipidemia, unspecified
CPT/HCPCS: 71045; 76937; 80048; 82948; 83735; 85014; 85025; 85027; 86850; 86900; 86901; 86920; 88305; 88311; 93005; 93318; 94002; 94150; 94640; 94664; 94667; 94668; C9248; C9290; J0131; J0171; J0282; J0360; J1100; J1644; J1815; J1817; J1885; J1940; J2150; J2250; J2270; J2370; J2405; J2720; J2930; J3010; J3370; J3475; J3480; J7030; J7040; J7050; J7120; P9047

== ENCOUNTER 2017-07-04 18:51 | Emergency (ER) | payer MEDICARE, OTHER ==
[~2017-07-04 18:51] MED LIST changes: +AMIO200T PO; +COZA50TA PO; +HYDR-3516 PO; -LOSA100T PO; -NORC5TAB PO; +THERM PO
[2017-07-04 19:00] VITALS: PULSE 70; RESP 14; O2SAT 97
[2017-07-04 19:01] VITALS: BP 159/70; PULSE 71; RESP 12; TEMP 98.4; O2SAT 97
[2017-07-04] MEDS ORDERED: SODIUM CHLOR 0.9% 1000 ML INJ 1,000 ML IV SCH (19:30)
--- NOTE | 2017-07-04 19:31 | PD ---
HPI Chief Complaint: Chest Pain Time Seen by Provider: 19:04 Travel History International Travel<30 days: No Contact w/Intl Traveler<30days: No Traveled to known affect area: No History of Present Illness HPI 77-year-old female complains of heart pounding and chest discomfort. Patient status post aortic valve replacement 4 days ago. Patient started having heart pounding this morning at the local rehab facility. Patient states that the heart pounding persistent and she was given anti-anxiety medication twice without much relief. Patient states that she feeling fine at this afternoon and elevated blood pressure this afternoon. Patient states that she started having intermittent chest discomfort this afternoon. Patient states that he does not comfort localized the anterior chest area. Patient denies any chest pain radiation. Patient denies any nausea or diaphoresis. Patient denies any coughing congestion fever chills. Patient has history of hypertension, hyperlipidemia. Patient has history of heart failure. On a scale of 1-10 chest discomfort is a 4. Patient has history of diastolic heart failure, aortic stenosis status post aortic valve replacement, hyperlipidemia, hypertension, chronic pain syndrome, osteoarthritis, peptic ulcer disease. PFSH Past Medical History Arthritis: Yes Autoimmune Disease: No Heart Rhythm Problems: No Cancer: No Cardiovascular Problems: Yes High Cholesterol: Yes Chest Pain: No Diabetes: No Endocrine: Yes Glaucoma: No Genitourinary: No Hepatitis: No Hiatal Hernia: No Hypertension: Yes Immune Disorder: No Musculoskeletal: Yes Neurologic: No Psychiatric: No Reproductive: No Respiratory: No Thyroid Disease: Yes (taken out) Tubal Ligation: Yes Past Surgical History Abdominal Surgery: Yes (APPY) AICD: No Appendectomy: Yes Cardiac Surgery: Yes (vein striping left leg, AORTIC VALVE REPLACEMENT) Eye Surgery: Yes (CATARACTS) Gynecologic Surgery: Yes (breast biopsy, tubal ligation) Hysterectomy: Yes Joint Replacement: No Pacemaker: No Other Surgery: Yes (LEFG LEG VEIN STRIPPING-LUMP LEFT BREAST NON CANCER- THYROID SURG) Social History Alcohol Use: No Tobacco Use: No Substance Use: No Allergies-Medications (Allergen,Severity, Reaction): Coded Allergies: ciprofloxacin (Unverified Allergy, Mild, 07/04/17) amoxicillin (Unverified Allergy, Unknown, DIARRHEA, 07/04/17) clavulanic acid (Unverified Allergy, Unknown, DIARRHEA, 07/04/17) disopyramide (Unverified Allergy, Unknown, SEVERE HEADACHE, 07/04/17) Reported Meds & Prescriptions Reported Meds & Active Scripts Active Thera M Plus (Multivitamins/Minerals Therapeutic) 1 Tab 1 Tab PO DAILY Hydrocodone-Acetamin 5-325 mg (Hydrocodone/Acetaminophen) 5 Mg-325 Mg Tablet 1 Tab PO Q4H PRN Cozaar (Losartan Potassium) 50 Mg Tab 50 Mg PO DAILY Amiodarone (Amiodarone HCl) 200 Mg Tab 200 Mg PO Q12HR x 2 weeks only , no refill Reported Miralax Powder (Polyethylene Glycol 3350 Powder) 17 Gm Powd 8.5 Gm PO DAILY Mix and dissolve one measuring cap-ful (17 grams) in water or juice. Colace (Docusate Sodium) 100 Mg Capsule 100 Mg PO BID Atorvastatin (Atorvastatin Calcium) 10 Mg Tab 10 Mg PO HS Atenolol 25 Mg Tab 25 Mg PO BID Aspirin EC (Aspirin) 81 Mg Tabdr 81 Mg PO DAILY Probiotic (Lactobacillus Acidophilus) 10 Billion Cell Cap 1 Cap PO DAILY Review of Systems General / Constitutional: No: Fever Eyes: No: Visual changes HENT: No: Headaches Cardiovascular: Positive: Chest Pain or Discomfort Respiratory: No: Shortness of Breath Gastrointestinal: No: Abdominal Pain Genitourinary: No: Dysuria Musculoskeletal: No: Pain Skin: No Rash Neurologic: No: Weakness Psychiatric: No: Depression Endocrine: No: Polydipsia Hematologic/Lymphatic: No: Easy Bruising Physical Exam Narrative GENERAL: Well-nourished, well-developed patient. SKIN: Focused skin assessment warm/dry. HEAD: Normocephalic. EYES: No scleral icterus. No injection or drainage. NECK: Supple, trachea midline. No JVD or lymphadenopathy. CARDIOVASCULAR: Regular rate and rhythm without murmurs, gallops, or rubs. RESPIRATORY: Breath sounds equal bilaterally. No accessory muscle use. GASTROINTESTINAL: Abdomen soft, non-tender, nondistended. MUSCULOSKELETAL: No cyanosis, or edema. BACK: Nontender without obvious deformity. No CVA tenderness. Neurologic exam normal. Data Data Last Documented VS Vital Signs Date Time Temp Pulse Resp B/P (MAP) Pulse Ox O2 Delivery O2 Flow Rate FiO2 07/04/17 19:07 69 11 97 Nasal Cannula 07/04/17 19:01 98.4 159/70 (99) 07/04/17 19:00 2.00 Orders Orders Electrocardiogram (4/21/18 19:18) Complete Blood Count With Diff (07/04/17 19:18) Comprehensive Metabolic Panel (07/04/17:18) Creatine Kinase (Cpk) (07/04/17 19:18) Troponin I (07/04/17:18) Prothrombin Time / Inr (Pt) (07/04/17 19:18) Act Partial Throm Time (Ptt) (07/04/17 19:18) Chest, Single Ap (07/04/17:18) Iv Access Insert/Monitor (07/04/17:18) Ecg Monitoring (07/04/17 19:18) Oximetry (07/04/17:18) Sodium Chlor 0.9% 1000 Ml Inj (Ns 1000 M (07/04/17 19:30) Ed Discharge Order (07/04/17 21:16) Labs Laboratory Tests Test 07/04/17 19:25 White Blood Count 8.4 TH/MM3 Red Blood Count 3.81 MIL/MM3 Hemoglobin 11.9 GM/DL Hematocrit 34.9 % Mean Corpuscular Volume 91.5 FL Mean Corpuscular Hemoglobin 31.1 PG Mean Corpuscular Hemoglobin Concent 34.0 % Red Cell Distribution Width 14.4 % Platelet Count 149 TH/MM3 Mean Platelet Volume 9.6 FL Neutrophils (%) (Auto) 66.2 % Lymphocytes (%) (Auto) 17.4 % Monocytes (%) (Auto) 11.5 % Eosinophils (%) (Auto) 4.4 % Basophils (%) (Auto) 0.5 % Neutrophils # (Auto) 5.6 TH/MM3 Lymphocytes # (Auto) 1.5 TH/MM3 Monocytes # (Auto) 1.0 TH/MM3 Eosinophils # (Auto) 0.4 TH/MM3 Basophils # (Auto) 0.0 TH/MM3 CBC Comment DIFF FINAL Differential Comment Prothrombin Time 10.1 SEC Prothromb Time International Ratio 1.0 RATIO Activated Partial Thromboplast Time 22.2 SEC Blood Urea Nitrogen 15 MG/DL Creatinine 0.65 MG/DL Random Glucose 93 MG/DL Total Protein 5.8 GM/DL Albumin 2.6 GM/DL Calcium Level 8.0 MG/DL Alkaline Phosphatase 55 U/L Aspartate Amino Transf (AST/SGOT) 25 U/L Alanine Aminotransferase (ALT/SGPT) 23 U/L Total Bilirubin 0.4 MG/DL Sodium Level 141 MEQ/L Potassium Level 4.2 MEQ/L Chloride Level 106 MEQ/L Carbon Dioxide Level 29.6 MEQ/L Anion Gap 5 MEQ/L Estimat Glomerular Filtration Rate 88 ML/MIN Total Creatine Kinase 91 U/L Troponin I 0.46 NG/ML MDM Medical Decision Making Medical Screen Exam Complete: Yes Emergency Medical Condition: Yes Interpretation(s) EKG shows sinus rhythm nonspecific ST-T wave change. Last Impressions Chest X-Ray 07/04/171917 Signed Impressions: Service Date/Time: Tuesday, July 04, 2017 19:41 - CONCLUSION: 1. Mild basilar airspace disease. No significant effusion. No pneumothorax. Alex Sosa MD 2046 PM. CBC within normal limits. CMP within normal limits. Troponin 0.46. Differential Diagnosis Differential diagnosis including musculoskeletal, angina, KS, PE, pneumothorax. Narrative Course 77-year-old female with heart pounding and chest discomfort. Status post aortic valve replacement 4 days ago. I spoke with Dr. Magana, advised for patient to follow with him in the office next week. Diagnosis Primary Impression: Chest pain Qualified Codes: R07.9 - Chest pain, unspecified Patient Instructions: General Instructions Additional Instructions: Continue with all medications. Follow-up with personal physician. Return if increasing chest pain shortness of breath. Med/Other Pt SpecificInfo: No Change to Meds Disposition: 01 DISCHARGE HOME Condition: Stable Luis Alberto Case MD Jul 04, 2017 19:31
[2017-07-04 19:43] LABS: AUTOMATED NEUTROPHIL # 5.6 TH/MM3 (1.8-7.7); BASOPHIL % 0.5 % (0.0-2.0); EOSINOPHIL # 0.4 TH/MM3 (0-0.4); EOSINOPHIL % 4.4 % (0.0-4.0); HEMATOCRIT 34.9 % (35.0-46.0); HEMOGLOBIN 11.9 GM/DL (11.6-15.3); LYMPH % 17.4 % (9.0-44.0); LYMPHOCYTE # 1.5 TH/MM3 (1.0-4.8); MEAN CELL VOLUME 91.5 FL (80.0-100.0); MEAN CORPUSCULAR HEMOGLOBIN 31.1 PG (27.0-34.0); MEAN PLATELET VOLUME 9.6 FL (7.0-11.0); MONO % 11.5 % (0.0-8.0); NEUT % 66.2 % (16.0-70.0); PLATELET COUNT 149 TH/MM3 (150-450); RED BLOOD COUNT 3.81 MIL/MM3 (4.00-5.30); RED CELL DISTRIBUTION WIDTH 14.4 % (11.6-17.2); WHITE BLOOD COUNT 8.4 TH/MM3 (4.0-11.0)
[2017-07-04 19:53] LABS: PROTHROMBIN TIME - PATIENT 10.1 SEC (9.8-11.6)
[2017-07-04 20:00] LABS: ALBUMIN 2.6 GM/DL (3.4-5.0); ALT (GPT) 23 U/L (10-53); AST (GOT) 25 U/L (15-37); BICARBONATE 29.6 MEQ/L (21.0-32.0); BLOOD UREA NITROGEN 15 MG/DL (7-18); CHLORIDE 106 MEQ/L (98-107); CREATININE 0.65 MG/DL (0.50-1.00); GLOMERULAR FILTRATION RATE 88 ML/MIN (>89); GLUCOSE,RANDOM 93 MG/DL (74-106); SODIUM (NA) 141 MEQ/L (136-145)
[2017-07-04 20:08] LABS: ALKALINE PHOSPHATASE 55 U/L (45-117); TOTAL BILIRUBIN ADULT 0.4 MG/DL (0.2-1.0); TOTAL PROTEIN 5.8 GM/DL (6.4-8.2); TROPONIN I 0.46 NG/ML (0.02-0.05)
--- NOTE | 2017-07-04 20:16 | RADRPT ---
EXAM DATE/TIME: 07/04/2017 19:41 [facility] COMPARISON: CHEST SINGLE AP, July 03, 2017, 4:25. INDICATIONS : Shortness of breath. MEDICAL HISTORY : Cardiovascular disease. Hypertension. SURGICAL HISTORY : Hysterectomy. Appendectomy.Tubal ligation. Aortic Valve replacement. ENCOUNTER: Initial ACUITY: 1 day PAIN SCORE: 0/10 LOCATION: chest FINDINGS: A single view of the chest demonstrates previous sternotomy with aortic valve replacement. Mild basil ar airspace disease. No effusion. No pneumothorax. CONCLUSION: 1. Mild basilar airspace disease. No significant effusion. No pneumothorax. Alex Sosa MD on July 04, 2017 at 20:12 Board Certified Radiologist. This report was verified electronically.
--- NOTE | 2017-07-06 00:31 | EKG ---
Date Performed: 07/04/2017 Time Performed: 19:09:18 PTAGE: 77 years EKG: Sinus rhythm MARKED LEFT AXIS DEVIATION INCOMPLETE RIGHT BUNDLE BRANCH BLOCK POSSIBLE ANTERIOR MYOCARDIAL INFARCT ION NON-SPECIFIC ST/T WAVE CHANGES ABNORMAL ECG PREVIOUS TRACING : 07/01/2017 04.49 Since the previous tracing, no significant change noted DOCTOR: Erik Ceron Interpretating Date/Time 07/06/2017 00:30:09
== END 2017-07-04 22:07 | disposition home or self-care (01) ==
LOC: NEPC 18:51
DX: R07.9 Chest pain, unspecified (principal); I45.10 Unspecified right bundle-branch block; I11.0 Hypertensive heart disease with heart failure; I50.32 Chronic diastolic (congestive) heart failure; E78.00 Pure hypercholesterolemia, unspecified; E78.5 Hyperlipidemia, unspecified; M19.90 Unspecified osteoarthritis, unspecified site; Z98.890 Other specified postprocedural states; Z95.2 Presence of prosthetic heart valve; Z88.0 Allergy status to penicillin; Z79.899 Other long term (current) drug therapy
CPT/HCPCS: 71045; 80053; 82550; 84484; 85025; 85610; 85730; 93005; 99285; J7030